=== PATIENT | female | born 1945 | race Caucasian/White ===

== ENCOUNTER 2019-11-07 12:03 | Outpatient (CLI) | payer MEDICARE, SELFPAY ==
--- NOTE | 2019-11-07 | XR_ITS ---
WS: [id number] LUMBAR SPINE: 5 VIEWS TECHNIQUE: AP, lateral, and L5-S1 spot. Lateral views in neutral, flexion and extension. HISTORY: LOW BACK PAIN WITH SCIATICA COMPARISON: 09/30/2018 Straightening of the normal lumbar lordosis is new since the prior study. Moderate disc space narrowi ng and desiccation at L5-S1 with multilevel mild spondylosis. Posterior lumbar alignment is normal. With flexion and extension there is no significant instability. SI joints are symmetric bilaterally. No soft tissue abnormalities. Scattered plaque within the visualized aorta. XR/XR lumbar spine min 4V [id number] IMPRESSION: 1. No lumbar spine instability. 2. New straightening of the normal lumbar lordosis since the prior study. May be related to spasm. 3. Moderate degenerative disc disease at L5-S1.
== END 2019-11-07 12:04 | disposition home or self-care (01) ==
LOC: RADOUTREAD 11-08 06:50
PROVIDERS: Family Provider Family Medicine; PCP Family Medicine; Visit Provider Nurse Practitioner Family
DX: M54.40 Lumbago with sciatica, unspecified side (principal); M47.897 Other spondylosis, lumbosacral region

== ENCOUNTER → 2020-04-30 09:30 | Outpatient (BNVA) | payer MEDICARE, MEDICAID, SELFPAY | PROVIDERS: Family Provider Family Medicine; PCP Family Medicine; Visit Provider Urology | DX: N30.10 Interstitial cystitis (chronic) without hematuria (principal); N39.46 Mixed incontinence | CPT/HCPCS: 81001 ==

== ENCOUNTER 2020-11-19 09:39 | Outpatient (CLI) | payer MEDICARE, SELFPAY ==
--- NOTE | 2020-11-19 09:45 | MM_ITS ---
WS: [id number] BILATERAL SCREENING DIGITAL MAMMOGRAM WITH CAD HISTORY: SCREENING COMPARISON: 08/01/2011 and 07/31/2010 Bilateral CC and MLO views submitted. Computer aided detection analyzed. Breast composition: There are scattered areas of fibroglandular density. No suspicious masses, microc alcifications or architectural distortion. Continued involution of the normal fibroglandular pattern. Coarse calcification in the central RIGHT breast. MM/[place] [id number] IMPRESSION: BI-RADS: 2-Benign FOLLOW UP: 1 Year Follow-up
== END 2020-11-19 09:40 | disposition home or self-care (01) ==
LOC: RADSHAW 09:41
PROVIDERS: PCP Family Medicine; Visit Provider Family Medicine
DX: Z12.31 Encounter for screening mammogram for malignant neoplasm of breast (principal)
CPT/HCPCS: 77067

== ENCOUNTER 2021-03-20 12:41 | Outpatient (CLI) | payer MEDICARE, SELFPAY ==
--- NOTE | 2021-03-20 | MR_ITS ---
WS: [id number] MRI LUMBAR SPINE NONCONTRAST TECHNIQUE: Sagittal T1, T2 and STIR imaging. Axial T1 and T2 imaging. CLINICAL INFORMATION: CHRONIC LT SIDED LOW BACK PAIN, SCIATICA COMPARISON: MRI September 2018 FINDINGS: Mild lumbar curve. No acute compression. No high-grade central canal stenosis. L1-L2: Normal. L2-L3: Mild disc bulging with slight impingement subarticular recess left greater than right.Mild fac et arthropathy. Small left foraminal protrusion with mild left foraminal narrowing. L3-L4: Mild disc bulging with slight impingement traversing L4 nerve roots bilaterally left greater t toribio right. Mild left foraminal narrowing. Mild facet arthropathy. L4-L5: Mild disc bulging with impingement on the subarticular recess and traversing right greater corine n left L5 nerve roots. Moderate facet arthropathy. Mild right foraminal narrowing. Moderate facet art hropathy. L5-S1: Mild disc bulging with osteophytic ridging. Moderate facet arthropathy. Foramen are patent. Visualized pelvic bony structures: Normal. Paravertebral soft tissues: Normal. Right renal cyst measuring 1.5 cm. Smaller left renal cysts. MR/MR lumbar spine wo con* [id number] IMPRESSION: 1. Disc bulging L4-5 impinges the traversing right L5 nerve root in the subart icular recess. Recommend correlation for right L5 nerve root symptoms. 2. Mild right L4-5 bony foraminal narrowing. 3. Narrowing of the subarticular recess L2-L3 and L3-L4 worse on the left at t hese levels. 4. Mild left L2-3 and L3-4 foraminal narrowing. 5. Moderate facet arthropathy worse at L4-5. 6. Overall no significant changes since September 2018
--- NOTE | 2021-03-20 | MR_ITS ---
WS: [id number] MRI CERVICAL SPINE NONCONTRAST TECHNIQUE: Sagittal T1, T2 and STIR imaging. Axial T2, gradient, and fiesta imaging. CLINICAL INFORMATION: NECK PAIN COMPARISON: CT 4 018 FINDINGS: Normal cervical alignment. Prior postoperative changes ACDF C4-C6 appears stable since 2018. Suscepti bility artifact from hardware degrades some images. C2-C3: Mild left bony foraminal narrowing. Mild facet arthropathy. Spinal canal and foramen are paten t. C3-C4: Mild disc bulging with osteophytic ridging. Mild bilateral bony foraminal narrowing. Moderate left facet arthropathy. Spinal canal is patent. C4-C5: Postoperative changes ACDF. Mild bilateral bony foraminal narrowing left greater than right. S catarino canal is patent. C5-C6: Postoperative changes ACDF. Mild bilateral bony foraminal narrowing. Spinal canal is patent. C6-C7: Mild left and no significant right foraminal narrowing. Spinal canal is patent. Mild facet art hropathy. C7-T1: Mild disc bulging. Spinal canal and foramen are patent Visualized brain stem structures: Normal. Prevertebral soft tissues: Normal. MR/MR cervical spin wo con* [id number] IMPRESSION: 1. Normal cervical alignment. ACDF C4-C6 appears stable since 2018. 2. Mild disc bulging and osteophytic ridging C3-C4 with mild central canal mayo nosis with slight contact of the cervical cord. 3. Mild bony foraminal narrowing worse at left C3-C4 and left C6-C7.
== END 2021-03-20 12:42 | disposition home or self-care (01) ==
PROVIDERS: PCP Nurse Practitioner Family; Visit Provider Nurse Practitioner Family
DX: M54.42 Lumbago with sciatica, left side (principal); M47.816 Spondylosis without myelopathy or radiculopathy, lumbar region; M51.26 Other intervertebral disc displacement, lumbar region; M25.78 Osteophyte, vertebrae; M48.02 Spinal stenosis, cervical region
CPT/HCPCS: 72141; 72148

== ENCOUNTER → 2021-04-25 11:39 | Outpatient (BNVA) | payer MEDICARE, SELFPAY | PROVIDERS: PCP Nurse Practitioner Family; Visit Provider Orthopaedic Surgery | DX: M25.561 Pain in right knee (principal); M17.11 Unilateral primary osteoarthritis, right knee; M54.5 Low back pain; M48.062 Spinal stenosis, lumbar region with neurogenic claudication; M51.26 Other intervertebral disc displacement, lumbar region; M50.21 Other cervical disc displacement, high cervical region; J43.9 Emphysema, unspecified; I70.0 Atherosclerosis of aorta | CPT/HCPCS: 73560; 73565 ==

== ENCOUNTER → 2021-04-30 10:14 | Outpatient (BNVA) | payer MEDICARE, SELFPAY | PROVIDERS: PCP Nurse Practitioner Family; Visit Provider Urology | DX: N39.0 Urinary tract infection, site not specified (principal); Z85.51 Personal history of malignant neoplasm of bladder | CPT/HCPCS: 81003 ==

== ENCOUNTER 2021-05-17 05:49 | Day surgery (SDC) | payer MEDICARE, SELFPAY ==
[2021-05-16 10:38] VITALS: BMI 23.1
[2021-05-17] VITALS (9 sets, daily range): BP systolic 129–151; BP diastolic 63–84; PULSE 62–104; RESP 16–22; TEMP 36.2–36.5; O2SAT 96–98
--- NOTE | 2021-05-17 | SCC_ITS ---
Procedure Done: Right L4/5 laminectomy with partial facetectomy No permanent C-leo images were obtained. MAYI
--- NOTE | 2021-05-17 06:33 | W.PM.OPSUD ---
Surgery/Procedure H&P Update DATE OF PROCEDURE: May 17, 2021 DATE H&P PERFORMED: 04/25/21 H&P UPDATE INFORMATION: I have reviewed H&P completed within last 30 days, I have examined patient prior to procedure and No changes to prior documentation PREOP DIAGNOSIS: lumbar stenosis PLANNED PROCEDURE: Operation Date: 05/17/21 07:00 Proposed Procedures p L4/5 MIS decompression 22934 m48.061(Not Applicable) - Domo Orta DO
[2021-05-17] MEDS: sodium chloride 0.9% 1,000 ML 30 ML IV (06:39)
--- NOTE | 2021-05-17 06:41 | ANES.PREANE2 ---
Pre-Anesthetic Assessment Pre-Anesthetic Assessment: Height/Weight: Height 1.7 m Weight 67.132 kg Temp Pulse Resp BP Pulse Ox 97.7 F 62 16 151/63 98 05/17/21 06:10 05/17/21 06:10 05/17/21 06:10 05/17/21 06:10 05/17/21 06:10 Preop Diagnosis: lumbar stenosis Proposed Procedure: Operation Date: 05/17/21 07:00 Proposed Procedures p L4/5 MIS decompression 97212 m48.061(Not Applicable) - Domo Orta DO Familial anesthetic complications: Spinal made her shiver and cold Was Beta Sandrine taken within 24 hours: Yes Was Clonidine taken within 24 hours: N/A Last intake: Intake Last Liquid Date 05/16/21 Last Liquid Time 21:00 Last Solid Date 05/16/21 Last Solid Time 21:00 Social: Social History: Tobacco and No alcohol Exam: Pre-Anes Outpt Exam: alert, oriented x 3, clear to auscultation bilaterally and regular rate & rhythm Additional Exam Findings (including area of procedure): diminished Airway: Cervical ROM: WNL MP: 2 Dentition: False Pulmonary: Pulmonary: COPD CV/HEM: CV/HEM: Arrythmia (hx SVT) and HTN Metabolic: Metabolic: Thyroid Anesthetic Plan: ASA status: 3 Anesthesia: General Risk of > 500 ml blood loss (7ml/kg in children): No Meds/Allergies Current Medications: Current Medications Generic Name Dose Route Start Last Admin Trade Name Freq PRN Reason Stop Dose Admin Sodium Chloride 1,000 mls @ 30 ml s/hr 05/17/21 06:15 05/17/21 06:39 Sodium Chloride 0.9% IV 05/18/21 06:14 30 mls/hr .Q24H RODOLFO Administration PFSH Anesthesia PFSH: Medical History Hx of bladder cancer Mixed stress and urge urinary incontinence Recurrent UTI Surgical History History of back surgery NECK SURGERY Hx of cataract surgery Hx of hemorrhoidectomy Hx of oophorectomy Hx of total hysterectomy Hx of transurethral destruction of bladder lesion Family History Mother , AT AGE 94 Congestive heart failure Aortic valve disorder Hypertension Heart block Father , IN HIS 80'S Alzheimer disease Other Diabetes Social History Alcohol intake: never Adopted: No Caregiver/support person: No Marital status: Current occupational status: retired History of recent travel: No Current gender identity: Female Data Anesthesia Cardiac Studies: No Data to Display
--- NOTE | 2021-05-17 06:43 | ECG_ITS ---
[facility] Test Date: 2021-05-17 Pat Name: Marlee Bernard Department: Room: Gender: Female Recording Clerk: : 1945 Requested By: Lupe Rainey Order Number: [id number] Yoli MD: Mary Alice Mahoney M.D. Measurements Intervals [place] Rate: 61 P: 68 [place]: 231 QRS: 49 QRSD: 79 T: 54 QT: 418 QTc: 423 Interpretive Statements SINUS RHYTHM WITH FIRST DEGREE AV BLOCK No previous ECG available for comparison Electronically Signed On 05-17-2021 14:54:48 CDT by Mary Alice Mahoney M.D. [id number]
--- NOTE | 2021-05-17 07:57 | P.OP_ITS ---
Operative Report Date of procedure: May 17, 2021 Pre-op Diagnosis: lumbar stenosis Post-op diagnosis: same Procedure Done: Right L4/5 laminectomy with partial facetectomy Surgeon: Domo Orta Anesthesia: General Estimated blood loss (mL): 5 Condition: stable Disposition: PACU Procedure: Right L4/5 laminectomy with partial facetectomy Patient is brought to the operative suite. After undergoing anesthesia they are placed in the supine position. All areas of impingement are well padded. Patient is then prepped and draped in the normal sterile fashion. A skin incision is made over the L4/5 level. This is confirmed under c-arm guidance. A series of dilators are passed and the tubular retractor is docked on the L4 lamina. A bovie is used to clear the soft tissue off the lamina and the L 4/5 facet joint. A high speed gilles is then used to perform the laminect janes and take down the medial aspect of the L 4/5 facet joint. A kerrison rongeure was then used to take down the remaining lamina and smooth the edge of the laminectomy up to the point where the ligamentum flavum attaches. Attention was then brought to the medial aspect of the facet joint. The remaining medial aspect of the superior and inferior aspect of the facet joint were taken down with the kerrison from the pedicle of L4 to L 5. The facet joint had significant hypertrophy. Attention was then brought to the Ligamentum Flavum. The ligament was taken down from the lamina of L4 to L5 and out medially to the remaining facet joint. The ligament was thick. The dura was then exposed. The dura was in good repair. The L4 nerve was then traced with a curette out the L4/5 foramen and found to be adequately decompressed. The L5 nerve was traced with a curette around the L5 pedicle. The lateral recess was opened with a kerrison helping to further decompress the L5 nerve. Wound is then irrigated copiously with saline and surgiflo is used to stop any bleeding. The tubular retractor is removed and the wound is closed with vicryl and monocryl suture. Glue is then used to protect the wound. A sterile dressing is then placed. Patient was then placed in the supine position and transferred to the PACU in stable condition.
[2021-05-17] MEDS: HYDROcodone-acetaminophen 5-325 mg Tablet 1 TAB PO (08:36)
--- NOTE | 2021-05-17 14:24 | ANE.PACU2 ---
Inpatient post-anesthesia follow up: Airway intact: Yes Vital signs: Temperature 97.4 F Pulse Rate 78 Respiratory Rate 16 Blood Pressure 129/66 Pulse Oximetry 97 Oxygen Delivery Me thod Room Air Oxygen Flow Rate 8 Fraction of Inspir ed Oxygen Hydration adequate: Yes Nausea and vomiting: No Pain level: 2 Mental status: Baseline
== END 2021-05-17 09:23 | disposition home or self-care (01) ==
PROVIDERS: PCP Nurse Practitioner Family; Visit Provider Orthopaedic Surgery
PROC: (CPT 63005; principal; 2021-05-17 07:00)
DX: M48.062 Spinal stenosis, lumbar region with neurogenic claudication (principal); J44.9 Chronic obstructive pulmonary disease, unspecified; I10 Essential (primary) hypertension; Z85.51 Personal history of malignant neoplasm of bladder; Z82.49 Family history of ischemic heart disease and other diseases of the circulatory system; Z83.3 Family history of diabetes mellitus; F17.210 Nicotine dependence, cigarettes, uncomplicated
CPT/HCPCS: 63047; 76000; 93005; J0690; J1100; J2405; J2704; J2710; J3010; J3490; J7030

== ENCOUNTER → 2021-06-10 10:58 | Outpatient (BNVA) | payer MEDICARE, SELFPAY | PROVIDERS: PCP Nurse Practitioner Family; Visit Provider Urology | DX: N39.0 Urinary tract infection, site not specified (principal) | CPT/HCPCS: 81003 ==

== ENCOUNTER 2021-08-06 10:00 | Outpatient (CLI) | payer MEDICARE, SELFPAY ==
--- NOTE | 2021-08-06 10:18 | CT_ITS ---
WS: [id number] LDCT LUNG CANCER SCREENING HISTORY: NICOTINE DEPENDENCE TECHNIQUE: Axial imaging performed from the apices to 1 cm below the costophrenic angles. Coronal and sagittal reformats are submitted with axial MIP series. All CT scans at [facility] use at least one of these dose optimization techniques: automated exposure control; mA and/or kV adjustment per patient size (includes targeted exams where dose is matched to clinical indication); or iterativ e reconstruction. DLP: 57.35 mGy.cm DIvol: 1.58 mGy COMPARISON: None available. Diagnostic quality: Satisfactory Lung Nodules: Small amount of biapical pleural thickening. Benign granuloma RIGHT upper lobe. No pulm onary mass or nodule. No endobronchial lesions. Lungs: Chronic emphysema. Heart: Normal size heart. No pericardial effusion. Other findings: Mild atherosclerosis aorta. No aneurysm. There are a few benign-appearing lymph nodes in the mediastinum and hilum. CT/CT lung screening [id number] IMPRESSION: LUNG-RADS: 1-Negative FOLLOW UP: 12 Month: Continue annual screening with LDCT OTHER FINDINGS (S MODIFIER): None.
== END 2021-08-06 10:01 | disposition home or self-care (01) ==
LOC: CT 10:03
PROVIDERS: PCP Nurse Practitioner Family; Visit Provider Nurse Practitioner Family
DX: Z12.2 Encounter for screening for malignant neoplasm of respiratory organs (principal); Z87.891 Personal history of nicotine dependence; I70.0 Atherosclerosis of aorta
CPT/HCPCS: 71271

== ENCOUNTER 2022-11-26 12:51 | Outpatient (CLI) | payer MEDICARE, SELFPAY ==
--- NOTE | 2022-11-26 13:13 | CT_ITS ---
WS: [id number] LDCT LUNG CANCER SCREENING TECHNIQUE: Noncontrast CT of the chest with coronal and sagittal reformatted images. CLINICAL INFORMATION: NICOTINE DEPENDENCE, CIGARETTES COMPARISON: August 06, 2021 DLP: 79.69 mGy.cm DIvol: Mean CTDIvol: 1.60 (mGy) All CT scans at [facility] use at least one of these dose optimization techniques: automat ed exposure control; mA and/or kV adjustment per patient size (includes targeted exams where dose is matched to clinical indication); or iterative reconstruction. FINDINGS: Normal caliber thoracic aorta. Mild aortic calcification. Coronary calcification. Normal caliber desc ending thoracic aorta. No mediastinal or hilar lymphadenopathy. A few normal sized anterior mediastin al and peribronchial lymph nodes. Calcified LEFT hilar nodes. No axillary lymphadenopathy. Adrenal glands are normal. Splenic granulomas. Normal GE junction. Moderate thoracic kyphosis. Fibros is in the lung apices. CT/CT lung screening [id number] IMPRESSION: LUNG-RADS: 1-Negative FOLLOW UP: 12 Month: Continue annual screening with LDCT
== END 2022-11-26 12:52 | disposition home or self-care (01) ==
LOC: RAD 13:00
PROVIDERS: PCP Nurse Practitioner Family; Visit Provider Family Medicine
DX: Z12.2 Encounter for screening for malignant neoplasm of respiratory organs (principal); F17.210 Nicotine dependence, cigarettes, uncomplicated
CPT/HCPCS: 71271

== ENCOUNTER → 2023-04-16 10:49 | Outpatient (BNVA) | payer MEDICARE, SELFPAY | PROVIDERS: PCP Nurse Practitioner Family; Visit Provider Orthopaedic Surgery | DX: M54.2 Cervicalgia (principal) | CPT/HCPCS: 72040; 99214 ==

== ENCOUNTER 2023-05-05 12:16 | Outpatient (CLI) | payer MEDICARE, SELFPAY ==
--- NOTE | 2023-05-05 12:45 | MR_ITS ---
WS: [id number] MRI CERVICAL SPINE NONCONTRAST TECHNIQUE: Sagittal T1, T2 and STIR imaging. Axial T2, gradient, and fiesta imaging. CLINICAL INFORMATION: s/p cervical spine fusion COMPARISON: MRI cervical March 20, 2021 FINDINGS: Straightening of the normal cervical lordosis. Prior postoperative changes ACDF C4-C6 with interbody bony fusion. Slight anterolisthesis C7 on T1. Cord signal is normal. Laminectomy defects C4-C6. Spina l canal has been decompressed since 2020 C2-C3: Moderate facet arthropathy. Small facet effusions. Spinal canal is patent. Mild LEFT bony fora ari narrowing. C3-C4: Moderate facet arthropathy. Mild bilateral bony foraminal narrowing LEFT greater than RIGHT. S catarino canal is patent. C4-C5: Postoperative changes. Spinal canal and foramen are patent. Moderate facet arthropathy. C5-C6: Postoperative changes anterior cervical fusion. Mild bilateral bony foraminal narrowing. Spina l canal is patent. C6-C7: Postoperative changes anterior cervical fusion at C6. Mild LEFT bony foraminal narrowing. Mode rate facet arthropathy. Spinal canal is patent. C7-T1: Slight anterolisthesis C7 on T1. Shallow tiny central protrusion. Foramen are patent. Visualized brain stem structures: Normal. Prevertebral soft tissues: Normal. MR/MR cervical spin wo con* [id number] IMPRESSION: 1. Straightening of the normal cervical lordosis. Prior postoperative changes ACDF C4-C6. 2. Spinal canal is been decompressed. No significant central canal stenosis. C ord signal is normal. 3. Mild to moderate bony foraminal narrowing worse at bilateral C3-C4, bilater al C5-C6, and LEFT C6-C7.
== END 2023-05-05 12:17 | disposition home or self-care (01) ==
PROVIDERS: PCP Nurse Practitioner Family; Visit Provider Orthopaedic Surgery
DX: M54.2 Cervicalgia (principal); Z98.1 Arthrodesis status; M48.02 Spinal stenosis, cervical region
CPT/HCPCS: 72141

== ENCOUNTER → 2023-05-12 14:23 | Outpatient (BNVA) | payer MEDICARE, SELFPAY | PROVIDERS: PCP Nurse Practitioner Family; Visit Provider Orthopaedic Surgery | DX: M54.2 Cervicalgia (principal) | CPT/HCPCS: 99214 ==

== ENCOUNTER 2023-11-11 10:39 | Outpatient (CLI) | payer MEDICARE, SELFPAY ==
--- NOTE | 2023-11-11 10:47 | CT_ITS ---
WS: [id number] LDCT LUNG CANCER SCREENING HISTORY: NICOTINE DEPENDENCE, CIGARETTES TECHNIQUE: Axial imaging performed from the apices to 1 cm below the costophrenic angles. Coronal and sagittal reformats are submitted with axial MIP series. All CT scans at [facility] use at least one of these dose optimization techniques: automated exposure control; mA and/or kV adjustment per patient size (includes targeted exams where dose is matched to clinical indication); or iterativ e reconstruction. DLP: 54.09 mGy.cm DIvol: Mean CTDIvol: 1.00 (mGy) COMPARISON: 11/26/2022 Diagnostic quality: Satisfactory Lungs: Hyperinflated lungs with mild interstitial thickening. Biapical pulmonary fibrosis. Stable ple ural tagging RIGHT upper lobe. There are a few very small micronodules scattered throughout the lungs . No mass or nodule. No endobronchial lesion. Heart: Normal size heart with no pericardial effusion.. Other findings: No mediastinal or hilar adenopathy. There are small normal size mediastinal and hilar lymph nodes. Mild atherosclerosis aorta. IMPRESSION: CT/CT lung screening [id number] LUNG-RADS: 1-Negative FOLLOW UP: 12 Month: Continue annual screening with LDCT OTHER FINDINGS (S MODIFIER): None.
== END 2023-11-11 10:40 | disposition home or self-care (01) ==
LOC: RAD 10:41
PROVIDERS: PCP Family Medicine; Visit Provider Family Medicine
DX: Z12.2 Encounter for screening for malignant neoplasm of respiratory organs (principal); F17.210 Nicotine dependence, cigarettes, uncomplicated
CPT/HCPCS: 71271

== ENCOUNTER → 2023-12-03 12:28 | Outpatient (BNVA) | payer MEDICARE, SELFPAY | PROVIDERS: PCP Family Medicine; Referring Provider Family Medicine; Visit Provider Internal Medicine | DX: R07.9 Chest pain, unspecified (principal); I34.1 Nonrheumatic mitral (valve) prolapse; I10 Essential (primary) hypertension; E78.5 Hyperlipidemia, unspecified | CPT/HCPCS: 93005; 99204 ==

== ENCOUNTER 2023-12-09 09:50 | Outpatient (CLI) | payer MEDICARE, SELFPAY ==
--- NOTE | 2023-12-09 10:00 | USCV_ITS ---
Marlee Bernard Age: 78 Gender: F : 1945 Exam Date: 12/09/2023 09:57 Ordering Phys: Steve Jacques M.D ([email or web address]) Technologist: Stephany Sofia Exam Location: [facility] – [place] Indication: Recheck on heart BP: / HR: 69 Rhythm: Sinus Technical Quality: Adequate MEASUREMENTS (Male / Female) Normal Values DOPPLER MV Peak Velocity 432.0 cm/s MV Area PHT 2.7 cm squared Mitral E to A Ratio 0.8 TR Peak Velocity 117.0 cm/s TR Peak Gradient 5.5 mmHg PV Peak Velocity 69.0 cm/s FINDINGS Left Ventricle Left ventricle is normal in size. LV systolic function is normal with EF of 55 to 60%. No regional wall motion abnormalities are seen. Grade 1 diastolic dysfunction. Right Ventricle Normal in size and function Right Atrium Normal in size Left Atrium Normal in size Mitral Valve Structurally normal mitral valve. Mild to moderate mitral regurgitation. Aortic Valve Aortic valve is thickened. No significant stenosis. Mild aortic regurgitation. Tricuspid Valve Mild tricuspid regurgitation. Insufficient TR jet to calculate RVSP. Pulmonic Valve Not well-visualized Pericardium Normal Aorta Normal in size IVC Appears to be normal CONCLUSIONS LV systolic function is normal with EF of 55 to 60%. Grade 1 diastolic dysfunction Mild to moderate mitral regurgitation Mild aortic regurgitation Mild tricuspid regurgitation. No comparison studies are available. Steve Jacques MD (Electronically Signed) Final Date: 19 December 2023 10:25 S
== END 2023-12-09 09:51 | disposition home or self-care (01) ==
LOC: RAD 09:50
PROVIDERS: PCP Family Medicine; Visit Provider Internal Medicine
DX: I08.3 Combined rheumatic disorders of mitral, aortic and tricuspid valves (principal); R07.9 Chest pain, unspecified
CPT/HCPCS: 93306

== ENCOUNTER → 2024-01-26 10:01 | Outpatient (BNVA) | payer MEDICARE, SELFPAY | PROVIDERS: PCP Family Medicine; Visit Provider Surgery | DX: K46.9 Unspecified abdominal hernia without obstruction or gangrene (principal) | CPT/HCPCS: 99204 ==

== ENCOUNTER 2024-02-05 08:14 | Outpatient (CLI) | payer MEDICARE, SELFPAY ==
--- NOTE | 2024-02-05 08:30 | FL_ITS ---
WS: [id number] Barium swallow and esophagram, 02/05/2024 Clinical Data: HIATAL HERNIA Comparison: None. Fluoroscopy time: 1min [id number] # of spot films: 7 Findings: The patient swallowed the thick and thin barium, and it flowed through the hypopharynx without hesita tion. No stricture, mass, polyp or erosion was seen. The C4-C6 anterior cervical disc fusion impinges only slightly onto the posterior aspect of the hypopharynx as did spurring at the C6-C7 level. The barium entered the esophagus and there was normal motility throughout. There was a small hiatal h ernia with reflux to the thoracic inlet. No polyp, mass, erosion, stricture, ulcer or fistula was see n. The barium passed normally into the stomach. Impression: Small hiatal hernia with reflux to the thoracic inlet.
== END 2024-02-05 08:15 | disposition home or self-care (01) ==
LOC: RAD 08:14
PROVIDERS: PCP Family Medicine; Visit Provider Surgery
DX: K44.9 Diaphragmatic hernia without obstruction or gangrene (principal)
CPT/HCPCS: 74220

== ENCOUNTER → 2024-02-17 13:40 | Outpatient (BNVA) | payer MEDICARE, SELFPAY | PROVIDERS: PCP Family Medicine; Visit Provider Surgery | DX: Z09 Encounter for follow-up examination after completed treatment for conditions other than malignant neoplasm (principal) | CPT/HCPCS: 99214 ==

== ENCOUNTER → 2024-06-02 13:23 | Outpatient (BNVA) | payer MEDICARE, SELFPAY | PROVIDERS: PCP Family Medicine; Visit Provider Internal Medicine | DX: I34.1 Nonrheumatic mitral (valve) prolapse (principal); I10 Essential (primary) hypertension; E78.5 Hyperlipidemia, unspecified; Z72.0 Tobacco use | CPT/HCPCS: 99214 ==

== ENCOUNTER 2024-09-26 20:19 | Emergency (ER) | payer MEDICARE, SELFPAY ==
[2024-09-26] VITALS (10 sets, daily range): BP systolic 161–191; BP diastolic 75–92; PULSE 73–83; RESP 16–20; TEMP 36.5; O2SAT 92–97
[2024-09-26 21:44] LABS: Basophils % 0.4 %; Eosinophils % 0.4 %; Lymphocytes # 0.7 10^3/uL (0.8-4.8); Lymphocytes % 8.5 %; Mean Corpuscular HGB Conc 33.2 g/dL (30-55); Mean Corpuscular Hemoglobin 31.1 pg (27-33); Mean Corpuscular Volume 93.8 fl (85-98); Mean Platelet Volume 8.6 fL (7.4-10.4); Monocytes # 0.4 10^3/uL (0.2-0.9); Monocytes % 4.5 %; Neutrophils # 6.63 10^3/uL (1.8-7.7); Neutrophils % 85.9 %; Nucleated Red Blood Cells % 0 %; Platelet Count 238 10^3/cmm (157-399); Red Blood Count 4.69 10^6/uL (3.85-5.65); Red Cell Distribution Width 13.2 % (12.1-15.1); White Blood Count 7.72 10^3/uL (3.29-11.43)
--- NOTE | 2024-09-26 21:45 | ED_ITS ---
HPI - Abdominal Pain 2 General: Chief Complaint: Abdominal Pain Stated Complaint: ABD Pain to Back Time Seen by Provider: 09/26/24 20:55 History of Present Illness: 79-year-old female who presents emergenc y room with right flank and abdominal pain. Says this has been intermittent for months. She seen her primary and had an ultrasound of her abdomen that showed no acute process. She is also been treated for a mild urinary tract infection she says. Says today it was much worse and caused her to have nausea and vomiting. Now pain is also started to radiate down her right back and into her right groin. No known fevers. Related Data Home Medications Medication Instructions Recorded Confirmed albuterol sulfate 90 mcg/actuation 2 puff inhalation Q6H PRN 04/30/20 06/02/24 aerosol inhaler (Proventil HFA) Shortness Of Breath biotin 1 mg capsule 1 mg PO DAILY 04/30/20 06/02/24 levothyroxine 75 mcg capsule 75 mcg PO DAILY 04/30/20 06/02/24 potassium chloride 10 mEq 10 meq PO DAILY 04/30/20 06/02/24 capsule,extended release metoprolol tartrate 25 mg tablet 25 mg PO DAILY 05/16/21 06/02/24 Multivitamin PO 12/03/23 06/02/24 cholecalciferol (vitamin D3) 50 50 mcg PO DAILY 12/03/23 06/02/24 mcg (2,000 unit) capsule Previous Rx's Medication Instructions Recorded cephalexin 500 mg capsule 500 mg PO BID 7 days #14 caps 09/26/24 ondansetron 4 mg disintegrating 4 mg PO Q8H PRN nausea and 09/26/24 tablet vomiting #10 tabs tamsulosin 0.4 mg capsule (Flomax) 0.4 mg PO DAILY #30 caps 09/26/24 tramadol 50 mg tablet 50 mg PO Q8H PRN pain #10 tabs 09/26/24 Allergies Allergy/AdvReac Type Severity Reaction Status Date / Time ciprofloxacin [From Cipro] Allergy Severe rash, sores Verified 09/26/24 20:39 diazepam [From Valium] Allergy Severe anxious Verified 09/26/24 20:39 hydroxyzine [From Vistaril] Allergy Severe difficulty Verified 09/26/24 20:39 breathing sulfamethoxazole Allergy Severe rash, Verified 09/26/24 20:39 [From Septra] sores meperidine [From Demerol] Allergy Intermediate difficulty Verified 09/26/24 20:39 breathing bupropion [From Wellbutrin] Allergy Unknown Increased Verified 09/26/24 20:39 blood pressure levofloxacin [From Levaquin] Allergy Unknown rash, sores Verified 09/26/24 20:39 trimethoprim [From Septra] Allergy Unknown rash, sores Verified 09/26/24 20:39 Review of Systems 2 Narrative: Constitutional symptoms: Negative except as documented in HPI. Skin symptoms: Negative except as documented in HPI. Eye symptoms: Negative except as documented in HPI. ENMT symptoms: Negative except as documented in HPI. Respiratory symptoms: Negative except as documented in HPI. Cardiovascular symptoms: Negative except as documented in HPI. Gastrointestinal symptoms: Negative except as documented in HPI. Genitourinary symptoms: Negative except as documented in HPI. Musculoskeletal symptoms: Negative except as documented in HPI. Neurologic symptoms: Negative except as documented in HPI. Psychiatric symptoms: Negative except as documented in HPI. Endocrine symptoms: Negative except as documented in HPI. PFSH ED 2 PFSH: Medical History Hx of bladder cancer Mixed stress and urge urinary incontinence Recurrent UTI Surgical History History of back surgery NECK SURGERY Hx of cataract surgery Hx of total hysterectomy Hx of oophorectomy Hx of hemorrhoidectomy Hx of transurethral destruction of bladder lesion Family History Mother , AT AGE 94 Congestive heart failure (CHF) Aortic valve disorder Hypertension Heart block Father , IN HIS 80'S Alzheimer disease Daughter Thyroid disease Other Diabetes Denies family history of Colon cancer Ovarian cancer Clotting disorder Breast cancer Anesthesia complication Bleeding disorder Uterine cancer Stroke Social History Smoking and tobacco/nicotine status: current every day tobacco/nicotine user Alcohol intake: never Substance/Drug Use: unknown Adopted: No Caregiver/support person: No Marital status: Current occupational status: retired Current gender identity: Female Physical Exam 2 Narrative: EXAM NARRATIVE: General: Alert, no acute distress. Skin: Warm, dry. Head: Normocephalic, atraumatic. Neck: Supple, trachea midline. Eye: Extraocular movements are intact. Ears, nose, mouth and throat: mucosa moist. Cardiovascular: Regular, Normal peripheral perfusion. Respiratory: Lungs are clear to auscultation, respirations are non-labored, breath sounds are equal, Symmetrical chest wall expansion. Gastrointestinal: Soft, right flank pain, Non distended Musculoskeletal: Normal ROM, no deformity. Neurological: Alert and oriented, No focal neurological deficit observed. Psychiatric: Cooperative, appropriate mood & affect. Course 2 Vital Signs: Vital signs: Vital Signs Temperature 97.7 F 09/26/24 20:33 Pulse Rate 81 09/26/24 23:15 Respiratory Rate 19 H 09/26/24 22:15 Blood Pressure 161/76 09/26/24 23:30 Pulse Oximetry 95 09/26/24 23:15 MDM - Abdominal Pain Medical Decision Making Medical decision making: Differential diagnosis including but not limited to and based on the above HPI, review of systems and physical exam: Ureterolithiasis. Urinary tract infection. Appendicitis. Cholecystis. Musculoskeletal / back pain. Pyelonephritis Orders placed to evaluate differential diagnosis based on the above differential, HPI and physical exam Lab Review: Laboratory results were reviewed and interpreted by myself the emergency room physician. No leukocytosis. No anemia. Renal function is stable at 29 and 1. She does have some blood in her urine with 6-[address] of the abdomen pelvis with contrast: Right-sided hydro with a 4 mm stone at the right UVJ. This was reviewed and interpreted by myself the emergency room physician. I also reviewed the radiology report. I reviewed the patient's medical record. Reexamination: Patient remained stable. She is currently having very little pain. No increased work of breathing. No altered mental status. Assessment and plan: Ureterolithiasis - Discharged home - Discussed findings and plan with patient. Answered any questions. - All laboratory values were reviewed and interpreted personally by myself, the ER physician - All imaging was reviewed and interpreted personally by myself, the ER physician. - Evaluation and treatment of this problem were appropriate in the emergency setting Lab Data 09/26/24 21:29 09/26/24 21:29 Labs/Radiology: Radiology Impressions Abdomen/Pelvis CT 09/26/24 21:56 IMPRESSION: Right-sided hydronephrosis with a 4 mm stone at the right UVJ. COMMENTS: Consistent with the [employer]'s Incidental Findings Committee white paper (J Am Jurgen Radiol 2018): Any incidental renal lesion less than 1 cm or classified as too small to characterize, or any incidental cystic renal lesion characterized as simple-appearing, is likely benign. No follow-up imaging is recommended for these lesions per consensus recommendations based on imaging criteria. Laboratory Results WBC 7.72 10^3/uL (3.29-11.43) 09/26/24 21: RBC 4.69 10^6/uL (3.85-5.65) 09/26/24 21: Hgb 14.60 g/dL (11.27-16.99) 09/26/24 21: Hct 44.0 % (36-47) 09/26/24 21: MCV 93.8 fl (85-98) 09/26/24 21: MCH 31.1 pg (27-33) 09/26/24 21: MCHC 33.2 g/dL (30-55) 09/26/24 21: RDW 13.2 % (12.1-15.1) 09/26/24 21: Plt Count 238 10^3/cmm (157-399) 09/26/24 21: MPV 8.6 fL (7.4-10.4) 09/26/24 21: Neut % (Auto) 85.9 % 09/26/24 21: Lymph % (Auto) 8.5 % 09/26/24 21: Jennings % (Auto) 4.5 % 09/26/24 21:29 Eos % (Auto) 0.4 % 09/26/24 21:29 Baso % (Auto) 0.4 % 09/26/24 21:29 Neut # (Auto) 6.63 10^3/uL (1.8-7.7) 09/26/24 21: Lymph # (Auto) 0.7 10^3/uL (0.8-4.8) L 09/26/24 21: Jennings # (Auto) 0.4 10^3/uL (0.2-0.9) 09/26/24 21: Eos # (Auto) 0.0 10^3/uL (0.0-0.8) 09/26/24 21:29 Baso # (Auto) 0.0 10^3/uL (0.0-0.1) 09/26/24 21: Nucleated RBC % (auto) 0 % 09/26/24 21: Nucleated RBCs # 0.0 /100WBC 09/26/24 21:29 Sodium 144 mmol/L (136-145) 09/26/24 21: Potassium 3.9 mmol/L (3.5-5.1) 09/26/24 21: Chloride 104 mmol/L (98-107) 09/26/24 21: Carbon Dioxide 27 mmol/L (22-29) 09/26/24 21: Anion Gap 16.9 (5-19) 09/26/24 21: BUN 29 mg/dL (8-23) H 09/26/24 21: Creatinine 1.0 mg/dL (0.5-0.9) H 09/26/24 21: GFR Calculation Not Reportable 09/26/24 21: Glucose 137 mg/dL (65-115) H 09/26/24 21:29 Calculated Osmolality 306 mOsm/kg (285-295) H 09/26/24 21: Lactic Acid 1.0 mmol/L (0.5-2.2) 09/26/24 21: Calcium 9.8 mg/dL (8.5-10.5) 09/26/24 21: Total Bilirubin 0.2 mg/dL (0.15-1.2) 09/26/24 21: AST 19 U/L (0-32) 09/26/24 21: ALT 11 U/L (0-33) 09/26/24 21: Alkaline Phosphatase 132 U/L (35-105) H 09/26/24 21:29 Total Protein 7.6 g/dL (6.6-8.7) 09/26/24 21: Albumin 4.6 g/dL (3.5-5.2) 09/26/24 21: Globulin 3.0 g/dL (1.3-4.6) 09/26/24 21: Lipase 27 U/L (13-60) 09/26/24 21:29 Urine Color Yellow (Yellow) 09/26/24 21:44 Urine Appearance Clear (CLEAR) 09/26/24 21:44 Urine pH 6.5 (5-7) 09/26/24 21:44 Ur Specific [place] 1.019 (1.005-1.030) 09/26/24 21:44 Urine Protein Negative (Negative) 09/26/24 21:44 Urine Glucose (UA) Negative (Normal) 09/26/24 21:44 Urine Ketones Trace (Negative) 09/26/24 21:44 Urine Blood 1+ (Negative) A 09/26/24 21:44 Urine Nitrate Negative (Negative) 09/26/24 21:44 Urine Bilirubin Negative (Negative) 09/26/24 21:44 Urine Urobilinogen 1.0 mg/dL (Negative) 09/26/24 21:44 Ur Leukocyte Esterase 1+ (Negative) A 09/26/24 21:44 Urine RBC 11-20 /hpf (0-2) H 09/26/24 21:44 Urine WBC 6-10 /hpf (0-5) 09/26/24 21:44 Ur Squamous Epith Cells 0-5 /hpf (0-5) 09/26/24 21:44 Amorphous Sediment Not Reportable 09/26/24 21:44 Urine Bacteria None seen /hpf (NONE) 09/26/24 21:44 Hyaline Casts 6.61 /lpf 09/26/24 21:44 All radiology interpretation(s) finalized by discharge Discharge Plan Discharge Patient Disposition: Home Clinical Impression: Ureterolithiasis Condition: Stable Prescriptions: New tramadol 50 mg tablet 50 mg PO Q8H PRN (Reason: pain) Qty: 10 0RF tamsulosin [Flomax] 0.4 mg capsule 0.4 mg PO DAILY Qty: 30 0RF ondansetron 4 mg tablet,disintegrating 4 mg PO Q8H PRN (Reason: nausea and vomiting) Qty: 10 0RF cephalexin 500 mg capsule 500 mg PO BID 7 Days Qty: 14 0RF No Action levothyroxine 75 mcg capsule 75 mcg PO DAILY potassium chloride 10 mEq capsule, extended release 10 meq PO DAILY biotin 1 mg capsule 1 mg PO DAILY albuterol sulfate [Proventil HFA] 90 mcg/actuation HFA aerosol inhaler 2 puff INHALATION Q6H PRN (Reason: Shortness Of Breath) cholecalciferol (vitamin D3) 50 mcg (2,000 unit) capsule 50 mcg PO DAILY Multivitamin PO metoprolol tartrate 25 mg Tablet 25 mg PO DAILY Discharge Orders: Discharge ED (Routine); Ordered 09/26/24 Ordered By: Isabel Han Referrals: Kraig Cervantes MD [Primary Care Provider] - Jamin Rich MD [Referring] - 4-7 days (Please call for a follow-up appointment with Dr. Rich. Tell his clinic that you were seen in the emergency room and referred for a kidney stone) Discharge Diet: Usual diet Discharge Activity: Increase activity as tolerated Patient Instructions: Kidney Stones (ED), Opioid Safety, Pain Management Activity Restrictions/Additional Instructions: Call for appointment with urology. If fever (temp >100.4) develops return to the emergency room immediately, as this is an emergency. Take nausea medication prior to taking pain medications. Thank you for choosing [facility] for your healthcare needs today. Please realize this is an emergency room and that we are providing you with a medical screening exam and this may not be complete and all inclusive of all the testing and or work up that you may need to determine your ailment or severity of your illness. You have been screened and evaluated and felt safe for discharge. Health conditions do change or evolve sometimes and as such it is important that you follow up with your Primary Doctor to be re checked, 3-5 days is a general good time frame for follow up. You are always welcome to return to the ED for re assessment if your symptoms are worsening or you have new concerns Coding Level of Care Code ED Char Filter Tank Tender for Oscar Morse
[2024-09-26 21:55] LABS: Bilirubin Urine Negative (Negative); Blood Urine 1+ (Negative); Glucose Urine UA Negative (Normal); Ketones Urine Trace (Negative); Leukocyte Esterase Urine 1+ (Negative); Nitrate Urine Negative (Negative); Protein Urine Negative (Negative); Specific Gravity, Urine 1.019 (1.005-1.030); Urine Appearance Clear (CLEAR); Urine Color Yellow (Yellow); pH Urine 6.5 (5-7)
--- NOTE | 2024-09-26 21:56 | CTR_ITS ---
PROCEDURE INFORMATION: Exam: CT Abdomen And Pelvis With Contrast Exam date and time: 09/26/2024 10:25 PM Age: 79 years old Clinical indication: Abdominal pain; Acute TECHNIQUE: Imaging protocol: Computed tomography of the abdomen and pelvis with contrast. Radiation optimization: All CT scans at this facility use at least one of these dose optimization techniques: automated exposure control; mA and/or kV adjustment per patient size (includes targeted exams where dose is matched to clinical indication); or iterative reconstruction. Contrast material: OMNI 350; Contrast volume: 100 ml; Contrast route: INTRAVENOUS (IV); COMPARISON: CR XR hip RT 2-3V wo/w pel* [id number] 09/13/2018 3:28 PM RADIATION DOSE METRICS: Total DLP (mGy-cm): 471.6 FINDINGS: Liver: Unremarkable. No mass. Gallbladder and biliary ducts: Unremarkable. No calcified stones. No ductal dilation. Pancreas: Unremarkable. No ductal dilation. Spleen: Unremarkable. No mass. Adrenal glands: Unremarkable. No mass. Kidneys and ureters: [id number] right hydroureteronephrosis with a 4 mm stone at the right UVJ. Punctate bilateral renal stones measuring upwards of 3 mm on the left. Bilateral renal cysts, up to 1.6 cm the right. Stomach and bowel: Unremarkable. No obstruction. No significant mucosal thickening. Appendix: No evidence of appendicitis. Intraperitoneal space: No free air. No significant fluid collection. Vasculature: No abdominal aortic aneurysm. Lymph nodes: No enlarged lymph nodes. Urinary bladder: Unremarkable as visualized. Reproductive: Unremarkable as visualized. Bones/joints: No acute fracture. No suspicious lesion. Soft tissues: No bowel containing hernia. CT/CT abdomen pelvis w con* [id number] IMPRESSION: Right-sided hydronephrosis with a 4 mm stone at the right UVJ. COMMENTS: Consistent with the [employer]'s Incidental Findings Committee white paper (J Am Jurgen Radiol 2018): Any incidental renal lesion less than 1 cm or classified as too small to characterize, or any incidental cystic renal lesion characterized as simple-appearing, is likely benign. No follow-up imaging is recommended for these lesions per consensus recommendations based on imaging criteria.
[2024-09-26 22:00] LABS: Add Urine Microscopic? YES; Bacteria Urine None Seen /hpf; Hyaline Casts Urine 6.61 /lpf; Squamous Epithelial Cell Urine 0-5 /hpf (0-5)
[2024-09-26 22:05] LABS: Alanine Aminotransferase 11 U/L (0-33); Albumin Level 4.6 g/dL (3.5-5.2); Alkaline Phosphatase 132 U/L (35-105); Anion Gap 16.9 (5-19); Aspartate Amino Transferase 19 U/L (0-32); Blood Urea Nitrogen 29 mg/dL (8-23); Calcium 9.8 mg/dL (8.5-10.5); Carbon Dioxide 27 mmol/L (22-29); Chloride 104 mmol/L (98-107); Creatinine Clr Calc Pharmacy 45.9629; Glucose 137 mg/dL (65-115); Lipase 27 U/L (13-60); Osmolality Calculated 306 mOsm/kg (285-295); Potassium 3.9 mmol/L (3.5-5.1); Sodium 144 mmol/L (136-145); Total Bilirubin 0.2 mg/dL (0.15-1.2); Total Protein 7.6 g/dL (6.6-8.7)
[2024-09-26 22:22] LABS: Add Urine Culture? Yes
[2024-09-26] MEDS: iohexol 350 mg/mL 500 mL Btl (per mL) IV (22:26)
[2024-09-26] MEDS: HYDROcodone-acetaminophen 5-325 mg Tablet 2 TAB PO (23:54)
[2024-09-26] MEDS: ondansetron 4 MG Tablet 8 MG PO (23:55)
[2024-09-26] MEDS: tamsulosin 0.4 mg Capsule PO (23:55)
== END 2024-09-26 23:59 | disposition home or self-care (01) ==
PROVIDERS: Emergency Medicine; Emergency Provider Emergency Medicine; PCP Family Medicine
DX: N20.1 Calculus of ureter (principal); Z72.0 Tobacco use; Z85.51 Personal history of malignant neoplasm of bladder
CPT/HCPCS: 36415; 74177; 80053; 81001; 83605; 83690; 85025; 87086; 99285; Q0162

== ENCOUNTER 2024-10-25 14:20 | Outpatient (CLI) | payer MEDICARE, SELFPAY ==
--- NOTE | 2024-10-25 14:27 | USR_ITS ---
PROCEDURE INFORMATION: Exam: US Retroperitoneal, Complete, Kidneys and Bladder Exam date and time: 10/25/2024 2:31 PM Age: 79 years old Clinical indication: Condition or disease; Kidney or ureter condition; Calculus (stone) in ureter; Additional info: Ureteral stone w/hydronephrosis TECHNIQUE: Imaging protocol: Real-time ultrasound of the retroperitoneum with image documentation. Complete exam focused on the bilateral kidneys and urinary bladder. COMPARISON: US gall bladder [id number] 08/10/2024 11:12 AM FINDINGS: Right kidney: Right kidney measures 9.8 x 5.4 x 5 cm with a renal cortical thickness of 1 cm and renal volume of 139 mL. Rounded anechoic focus of 1.6 x 1.9 x 1.7 cm with partial exophytic appearance is seen from the cortex of the right kidney consistent with simple cyst. Renal color flow is seen. No significant hydronephrosis of the right kidney. Left kidney: Left kidney measures 9.4 x 3.9 x 4.1 cm with a renal cortical thickness of 1 cm and renal volume of 78.5 mL. Two well rounded hypoechoic to partial anechoic focus with exophytic appearance is seen from the cortex of the left kidney, measuring 1.5 x 1.3 x 1.4 cm and 1.1 x 1.2 x 1.2 cm. Findings suggest minimally complex renal cysts. Renal color flow is seen. No significant hydronephrosis of the left kidney. Urinary bladder: Images of the visualized urinary bladder show no focal abnormality. Neither ureteral jet is seen. US/US renal BI* [id number] IMPRESSION: 1. Renal cysts, as noted above. 2. No findings of hydronephrosis or obstruction, suggesting interval improvement in hydronephrosis of the right kidney from previous CT exam 09/26/2024. 3. Neither ureteral jet is seen within the urinary bladder, which is otherwise unremarkable.
== END 2024-10-25 14:21 | disposition home or self-care (01) ==
PROVIDERS: PCP Family Medicine; Visit Provider Nurse Practitioner Family
DX: N13.2 Hydronephrosis with renal and ureteral calculous obstruction (principal); Q61.02 Congenital multiple renal cysts
CPT/HCPCS: 76770

== ENCOUNTER 2025-01-05 08:37 | Outpatient (CLI) | payer MEDICARE, SELFPAY ==
--- NOTE | 2025-01-05 08:44 | CT_ITS ---
WS: [id number] LDCT LUNG CANCER SCREENING TECHNIQUE: Noncontrast CT of the chest with coronal and sagittal reformatted images. CLINICAL INFORMATION: HX OF TOBACCO USE COMPARISON: CT 11/11/2023 DLP: 54.59 mGy.cm DIvol: Mean CTDIvol: 1.00 (mGy) All CT scans at [facility] use at least one of these dose optimization techniques: automated exposure control; mA and/or kV adjustment per patient size (includes targeted exams where dose is matched to clinical indication); or iterative reconstruction. FINDINGS: Hyperinflation. Chronic interstitial thickening similar to previous. Fibrosis in the lung apices. Scattered bilateral micronodules similar to the prior examination. 5 mm focal nodule or fibrosis superior segment LEFT lower lobe. No new suspicious pulmonary parenchymal abnormalities. Nodular pleural thickening RIGHT upper lobe similar to previous. Bibasilar atelectasis. No mediastinal or hilar lymphadenopathy. Numerous normal sized mediastinal lymph nodes. Mild aortic calcification. Aortic calcification. Thickening of the LEFT adrenal gland. RIGHT adrenal gland is normal. Splenic artery calcification. Normal GE junction. No axillary lymphadenopathy. Mild thoracic curve and thoracic kyphosis. CT/CT lung screening [id number] IMPRESSION: LUNG-RADS: 2-Benign Appearance or Behavior FOLLOW UP: 12 Month: Continue annual screening with LDCT
== END 2025-01-05 08:38 | disposition home or self-care (01) ==
LOC: RAD 08:39
PROVIDERS: PCP Family Medicine; Visit Provider Family Medicine
DX: Z12.2 Encounter for screening for malignant neoplasm of respiratory organs (principal); Z87.891 Personal history of nicotine dependence; J98.4 Other disorders of lung; J84.10 Pulmonary fibrosis, unspecified; R91.8 Other nonspecific abnormal finding of lung field; J92.9 Pleural plaque without asbestos; J98.11 Atelectasis; R59.0 Localized enlarged lymph nodes; I70.0 Atherosclerosis of aorta; E27.9 Disorder of adrenal gland, unspecified; D73.89 Other diseases of spleen; M43.8X4 Other specified deforming dorsopathies, thoracic region; M40.294 Other kyphosis, thoracic region
CPT/HCPCS: 71271

== ENCOUNTER → 2025-01-20 10:27 | Outpatient (BNVA) | payer MEDICARE, SELFPAY | PROVIDERS: PCP Family Medicine; Visit Provider Nurse Practitioner Family | DX: R00.2 Palpitations (principal); I34.1 Nonrheumatic mitral (valve) prolapse; I10 Essential (primary) hypertension; E78.5 Hyperlipidemia, unspecified | CPT/HCPCS: 93005; 99214 ==

== ENCOUNTER 2025-02-21 08:28 | Outpatient (CLI) | payer MEDICARE, SELFPAY ==
--- NOTE | 2025-02-21 08:30 | USCV_ITS ---
Marlee Bernard Age: 79 Gender: F : 1945 Exam Date: 02/21/2025 09:23 Ordering Phys: Germania Samuels NP Technologist: [place] [facility] [place]: afib BP: 130 / 80 HR: 66 Rhythm: Sinus Technical Quality: Adequate MEASUREMENTS (Male / Female) Normal Values 2D ECHO LV Diastolic Diameter PLAX 3.6 cm 4.2 - 5.9 / 3.9 - 5.3 cm IVS Diastolic Thickness 1.1 cm 0.6 - 1.0 / 0.6 - 0.9 cm IVS Systolic Thickness 1.3 cm LVPW Diastolic Thickness 1.1 cm 0.6 - 1.0 / 0.6 - 0.9 cm LVPW Systolic Thickness 1.5 cm LVOT Diameter 2.1 cm LV Ejection Fraction 2D Teich 60.4 % LV Ejection Fraction MOD 4C 59.7 % LV Ejection Fraction MOD 2C 63.1 % LV Ejection Fraction 2C AL 62.7 % LA Diameter 3.0 cm RA Systolic Volume 4C AL 32.2 ml RA Systolic Volume 4C MOD 30.8 ml Aorta at Sinotubular Diameter 3.3 cm IVC Diameter 1.6 cm M-MODE LA Ao Ratio MM 1.0 AV Cusp Separation MM 1.7 cm DOPPLER AV Peak Velocity 143.0 cm/s LVOT Peak Velocity 79.0 cm/s AV Area Cont Eq vti 2.4 cm squared AV Area Cont Eq pk 1.8 cm squared MV Peak Velocity 94.0 cm/s MV Area PHT 4.2 cm squared Mitral E to A Ratio 1.0 TV Peak Velocity 153.5 cm/s TR Peak Velocity 238.0 cm/s TR Peak Gradient 22.7 mmHg TV Peak E Velocity 72.0 cm/s PV Peak Velocity 104.0 cm/s FINDINGS Left Ventricle Left ventricle is normal size. LV systolic function is normal with EF of 60-65%. No regional wall motion abnormalities are seen. Right Ventricle Normal in size and function Right Atrium Normal in size Left Atrium Normal in size Mitral Valve Structurally normal mitral valve. Mild mitral regurgitation. Aortic Valve Aortic valve is thickened. No significant stenosis. Mild aortic regurgitation. Tricuspid Valve Mild tricuspid regurgitation. Pulmonary artery systolic pressure is normal Pulmonic Valve Trace pulmonic regurgitation. Pericardium Normal Aorta Normal in size IVC Appears to be normal CONCLUSIONS LV systolic function is normal with EF of 60-65% Mild mitral regurgitation Mild aortic regurgitation Mild tricuspid regurgitation Trace pulmonic regurgitation Compared to prior echocardiogram from 2023, no significant changes are seen. Steve Jacques MD (Electronically Signed) Final Date: 01 Mar 2025 09:13 S
--- NOTE | 2025-02-21 10:00 | USCV_ITS ---
Marlee Bernard Age: 79 Gender: F : 1945 Exam Date: 02/21/2025 08:34 Ordering Phys: Germania Samuels NP Technologist: VENTURA [place] [facility] [place]: right carotid bruit Risk Factors: Previous Vascular Surgery: Right Brachial BP: / Left Brachial BP: / Right Left Velocity (cm/s) Spectral Plaque Velocity (cm/s) Spectral Plaque Syst/Diast Broadening Syst/Diast Broadening 71.10/ 18.00 Prox CCA 51.60 / 9.50 65.90/ 16.70 Mid CCA 74.50 / 15.40 51.60/ 18.00 Distal CCA 68.30 / 24.40 44.80/ 14.60 Prox ICA 51.20 / 11.40 51.30/ 17.70 Mid ICA 73.00 / 18.20 57.50/ 18.00 Distal ICA 94.90 / 29.10 146.30 ECA 88.60 0.90 ICA/CCA 0.80 Antegrade Vertebral Antegrade 32.80/ 7.80 cm/s 55.60/ 10.40 cm/s Tri Subclavian Tri 103.2 62.50 0 FINDINGS Comparison: none available. No significant elevation of systolic or diastolic velocities. Waveforms are normal. Mild scattered carotid plaque. CONCLUSIONS Bilateral ICA stenosis less than 50%. Dr. Arabella Marroquin DO (Electronically Signed) Final Date: 21 February 2025 10:02 S
== END 2025-02-21 08:29 | disposition home or self-care (01) ==
LOC: RAD 08:30
PROVIDERS: PCP Family Medicine; Visit Provider Nurse Practitioner Family
DX: R09.89 Other specified symptoms and signs involving the circulatory and respiratory systems (principal); I34.1 Nonrheumatic mitral (valve) prolapse; I65.23 Occlusion and stenosis of bilateral carotid arteries; I34.0 Nonrheumatic mitral (valve) insufficiency; I35.8 Other nonrheumatic aortic valve disorders; I35.1 Nonrheumatic aortic (valve) insufficiency; I07.1 Rheumatic tricuspid insufficiency
CPT/HCPCS: 93306; 93880

== ENCOUNTER 2025-03-22 08:51 | Outpatient (CLI) | payer MEDICARE, SELFPAY ==
[2025-03-22 09:21] VITALS: BMI 24.2
--- NOTE | 2025-03-22 09:25 | ECG_ITS ---
[facility] Date: 2025-[facility]-22 Pat Name: Marlee Bernard Department: Room: Gender: Female Fern Cutter: : 1945 Requested By: Germania Samuels Order Number: [id number] Kent MD: FELIZ TEE Interpretive Statements Lung unchanged pre/post procedure; Intraprocedure shortess of breath; Symptoms resoled by discharge NOTE: Please note that this is the electrocardiogram portion of the Lexiscan/Sestamibi stress test. The perfusion scan will be documented separately. DATA: Baseline heart rate was 64 beats per minute. Baseline blood pressure was 156/73 millimeters of mercury. Target heart rate was 142. Maximum heart rate achieved was 95. which was 66% of the predicted target heart rate. Maximum blood pressure was 156/96 millimeters of mercury. The reason for ending the test was completion of the protocol. The patient did not experience any symptoms. ELECTROCARDIOGRAM: BASELINE: Sinus rhythm. Normal axis. Old possible anterior wall myocardial infarction versus lead misplacement otherwise no ST-T changes suggestive of ischemia noted. No arrhythmia noted. EXERCISE: After Lexiscan injection, no ST-T changes suggestive of ischemic noted. No arrhythmia noted. CONCLUSION: Please note due to baseline abnormality of the EKG specificity and sensitivity of the EKG portion of LexiScan MIBI stress test will be low 1. EKG not suggestive of ischemia 2. Lexiscan injection unremarkable. 3. Perfusion scan will be documented separately. Electronically Signed On 04-01-2025 23:24:25 CDT by FELIZ TEE [email or web address]
--- NOTE | 2025-03-22 09:26 | NMCV_ITS ---
NM emely perf SPECT r/s* [id number] Marlee Bernard Age: 79 Gender: F : 1945 Exam Date: 03/22/2025 10:12 Ordering Phys: Germania Samuels NP Technologist: JAMIR Sequeira Exam [facility] Indications: cp STRESS TEST Please see separate stress test report in [facility] for full findings IMAGE PROTOCOL Rest/Stress 1 Lexiscan Day Radiopharmaceutical Dose (mCi) Administration Site Administered by Rest: Tc-99m 10.4 IV Gregoria Whatley, CLIENT PROGRAM MANAGER Sestamibi Stress:Tc-99m 32.8 IV Gregoria Samaniegogle, CLIENT PROGRAM MANAGER Sestamibi Rest: 22-Mar-2025 60 Discovery 630 Stress: 22-Mar-2025 30 Discovery 630 0.4mg Lexiscan. Supine position only as patient was unable to lay prone. Images limited due to patient having a hiatel hernia. SPECT RESULTS Technical Quality: Poor Raw Data Analysis: Normal Image Corrections: Summed Stress Score: 2 Summed Rest Score: 0 Summed Difference Score: 2 PERFUSION FINDINGS Medium size area of patchy decreased tracer uptake noted in mid to distal and anterior and basal to distal inferior wall in the absence of wall motion abnormality it appeared to be an artifact. Clinical correlation advised FUNCTIONAL RESULTS (calculated via Gated SPECT) Stress Image LV EF (%): 78 Stress EDV (mL):68 TID: 1.03 Stress ESV (mL):15 FUNCTIONAL FINDINGS: There is normal left ventricular systolic function. IMPRESSIONS This study is negative for ischemia. There is no wall motion abnormality. Sarath Hahn MD (Electronically Signed) Final Date: 31 March 2025 20:01 S
[2025-03-22] MEDS: regadenoson 0.4 Mg/5 ml Syringe IVP (11:05)
[2025-03-22 11:36] VITALS: BP 146/84; PULSE 81
== END 2025-03-22 08:52 | disposition home or self-care (01) ==
LOC: CDL 08:54
PROVIDERS: PCP Family Medicine; Visit Provider Nurse Practitioner Family
DX: R07.9 Chest pain, unspecified (principal)
CPT/HCPCS: 36415; 78452; 93017; 96374; A9500; J2785

== ENCOUNTER 2025-08-29 18:40 | Emergency (ER) | payer MEDICARE, SELFPAY ==
--- OUTSIDE RECORDS SUMMARY | 2025-04-25 05:00 | XMS_ITS ---
Author Organization [facility] Address [address] [place] [address] Care Team Providers Care Road Mixer Operator Name Role Phone Kraig Cervantes MD Primary Care Provider Jamin Shell Unavailable [phone] CLAUDIA MCNAIR Unavailable [phone] REASON FOR VISIT Pt will call back to r/s- 6-8 wks f/u - urge incontinence/fecal urgency Procedures Procedure Date Ordered Date Performed Result Body Sit e Bladder Scan 04/25/2025 N/A Encounters Encounter Location Date Provider Diagnosis [facility] [address] [place] [address] 04/25/2025 CLAUDIA MCNAIR Mixed stress and urg [...] * Marlee BERNARD RDOB:1945 (80 yo F)Acc No.[id number]:04/25/2025 Progress Notes Patient: Jairon GARCIA Marlee Morales Provider: Tyrone Mcnair APRN :1945 A ge:79 Y S ex:Female Date:04/25/2025 Address:[address] [place], [place] [id number] Pcp:Kraig Cervantes MD Subjective: * Chief Complaints: [...] take Myrbetriq because of cost concerns. At [facility],? she was given V esicare prescription and [...] Codes: 8 1003 URINALYSIS, AUTO, W/O SCOPE, 26699 US URINE CAPACITY MEASURE * Billing Information: * Visit Code: * Procedure Codes: 79006 URINALYSIS, AUTO, W/O SCOPE. 56383 US URINE CAPACITY MEASURE. * Electronic signature of CAROL MCNAIR APRN on 08/29/2025 at 06:44 PM PROFESSIONAL FEE CODER Sign off status: Pending * Provider: Tyrone Mcnair APRN Date: 0 04/25/2025 Generated for Matthew nixon/Gerda/eTransmitting on: 1 10/29/2024 06:44 PM PROFESSIONAL FEE CODER History and Physical Notes * HPI (History [...] take Myrbetriq because of cost concerns. At [facility], she was given Vesicare prescription and Gemtesa samples to take in combination. She is here today for 6-8w f/u with UA/PVR.
[2025-08-29 18:44] VITALS: BP 197/85; PULSE 76; TEMP 36.8; O2SAT 97
--- OUTSIDE RECORDS SUMMARY | 2025-08-29 18:44 | XMS_ITS | Data Portability ---
Author Organization [facility] Address [address] [address] Care Team Providers Care Head Of It Name Role Phone MEE CERVANTES Primary Care Provider Assessment Encounter Date Assessment Date Assessment LastModified by Organization Details LastModified Time 05/03/2025 05/03/2025 Document scribed by Deanne Blandibe. I was present during interview and exam. I have reviewed and agree with above documentation. Dr. Irwin Cunningham. [email or web address] Not available 05/03/2025 12:52:17 06/13/2025 06/13/2025 Document scribed by Deanne Bland. I was present during interview and exam. I have reviewed and agree with above documentation. Dr. Irwin Cunningham. [email or web address] Not available 06/13/2025 14:43:05 07/25/2025 07/25/2025 Document scribed by Deanne Blandibe. I was present during interview and exam. I have reviewed and agree with above documentation. Dr. Irwin Cunningham. [email or web address] Not available 07/25/2025 12:38:37 08/01/2025 08/01/2025 Document scribed by Deanne Bland. I was present during interview and exam. I have reviewed and agree with above documentation. Dr. Irwin Cunningham. Return to office with no improvement or any problems. Go to ER with severe worsening or severe problems. [email or web address] Not available 08/02/2025 08:50:30 Plan of Treatment Reminders Order Date Submit Date Provider Last Modified By Organization Details Last Modified Time Details Appointments None recorded. Lab H pylori urea breath test, co2 infrared 2024 025 [email or web address] [facility], [address] [facility] [place], [address], 16:04:49 Referral None recorded. Procedures colonoscopy , with removal of tumor, polyp or lesion (PROC) [address], [address] , [place], [address], 11:46:30 upper endoscopy procedure (EGD) (PROC) 2024 025 [facility], [address] , [place], [address], 15:30:29 Surgeries None recorded. Imaging XR, foot, 3 or more view 2024 025 [email or web address] 2 [facility], [address] [place], [address], 09:34:44 Medication Orders tetracyclin e 500 mg capsule 2024 [facility], [address], [place], [address], 05:01:33 metronidazo le 500 mg tablet 2024 [facility], [address], [place], [address], 05:01:33 bismuth subsalicyla te 262 mg tablet 2024 025 [facility], [address], [place], [address], 05:01:33 Patient TargetsNo targets recorded. Patient Instructions Encounter Date Encounter Id Patient Instructions Last Modified By Organization Details Last Modified Time 05/03/2025 [id number] smoking cessatio n counseling, greater than 3 minutes up to 10 minutes* [email or web address] Not available 05/03/2025 13:22:05 Reason for Referral None Reported. Results Created Date Observation Date Name Description Value Unit Range Abnormal Flag Note LastModifiedBy Organization Detail LastModifiedTime 07/12/2007/14/2025 HELIC OBACT ER PYLOR I, UREA BREAT H TEST helicobacter pylori, urea breath test DETECT ED not detect ed abnormal Antim icrob ials, ez n pump inhib itors , and bismu th prepa ratio ns are known to suppr ess H. pylor i, and inges tion of these prior to H. pylor i diagn ostic testi ng may lead to false negat sayda resul ts. If clini efrain indic ated, the test may be repea rachana on a new speci men obtai fernando two weeks after disco ntinu ing treat ment. Howev er, a posit sayda resul t is still clini efrain valid . Not Available [facility] [address] [place], [address], 07/14/2025 10:28:06 04/12/20 25 04/10/2025 XR, foot, 3 or more view No observ ation record ed. [email or web address] [place], [address], 04/13/2025 15:29:24 05/30/20 25 05/25/2025 upper endos copy proce dure (EGD) (PROC ) No observ ation record ed. [facility] [place] [address] [place], [address], 05/31/2025 10:36:05 05/30/20 25 05/25/2025 colon oscop y proce dure (PROC ) No observ ation record ed. [facility] [place] [address] [place], [address], 05/31/2025 10:35:19 Result Notes None recorded. Problems Name Problem SNOMED Code Status Onset Date Resolution Date Notes Provider Name and Address Organization Details Recorded Time Abdomina l hysterec tiff Completed 199710/04/2019 Hysterec tiff; Abdomina l - Status is Inactive ; Date: 1997; 10/04/20 11:44AM by Madhuri Choi CMT, Annotati on/Adden dum; Promoted ; acuity set as *; Not Available [facility] 3 03:07:20 Nicotine dependen ce 49220304 Completed 201810/04/2019 Smoker - Status is Inactive ; 10/04/20 11:44AM by Madhuri Choi CMT, Annotati on/Adden dum; Promoted ; acuity set as *; Not Available [facility] 3 03:07:19 Hypercho lesterol emia 72564833 Completed 201810/04/2019 Hypercho lesterol emia - Status is Inactive ; 10/04/20 11:44AM by Madhuri Choi CMT, Annotati on/Adden dum; Promoted ; acuity set as *; Not Available [facility] 3 03:07:20 Malignan t neoplasm of urinary system suspecte d 690049029 Completed 201810/04/2019 Bladder Ca - Status is Inactive ; Resected .; 10/04/20 11:44AM by Madhuri Choi CMT, Annotati on/Adden dum; Promoted ; acuity set as *; Not Available [facility] 3 03:07:20 Asthma [id number] Completed 201810/04/2019 Asthma - Status is Inactive ; 10/04/20 11:44AM by Madhuri Choi CMT, Annotati on/Adden dum; Promoted ; acuity set as *; Not Available [facility] 3 03:07:20 Low back pain 964147077 Completed 201810/04/2019 Low Back Pain - Status is Inactive ; 10/04/20 11:44AM by Madhuri Choi CMT, Annotati on/Adden dum; Promoted ; acuity set as *; Not Available [facility] 3 03:07:20 Fibromya lgia 766862396 Completed 201810/04/2019 Fibromya lgia - Status is Inactive ; 10/04/20 19 11:44AM by Madhuri Choi CMT, Annotati on/Adden dum; Promoted ; acuity set as *; Not Available [facility] 3 03:07:21 Hemorrho idectomy Completed 201810/04/2019 Hemorrho idectomy - Status is Inactive ; 2005.; 10/04/20 11:44AM by Madhuri Choi CMT, Annotati on/Adden dum; Promoted ; acuity set as *; Not Available [facility] 3 03:07:21 Esophago gastrodu odenosco py Active 2021 EGD 08/05/06 Leonor maldonado [facility] 4 11:58:45 Mitral valve prolapse 480388870 Active 2021 Leonor maldonado [facility], [facility] 4 11:58:38 History of malignan t neoplasm 752868640 Active 2021 HISTORY OF BLADDER CANCER - 2002/garcia moises to remove Leonor maldonado [facility] 4 11:59:12 Hypothyr oidism 89482496 Active 2022 Mee Cervantes MD [address] [place] [address], [phone] , [facility] Veronica, L.L.CLiane 3 10:54:40 Carcinom a of urinary bladder, [facility] 0[facility] Active 2022 MERON maldonado [facility], [facility] 3 16:12:47 Insomnia 947495773 Active 2022 MERON maldonado [facility], [facility]iane[facility] 3 16:20:47 Chronic neck pain for greater than 3 months 14537107974 9103 Active 2022 MERON maldonado [facility] 3 16:21:05 [facility] l hyperten keerthi 36978316 Active 2022 MEORN maldonado, [facility] 3 16:20:37 Chronic obstruct sayda pulmonar y disease 28976807 Active 2022 MERON maldonado, [facility] 3 16:20:31 Gastroes ophageal reflux disease 307228642 Active 2022 MERON maldonado, [facility] 3 16:20:42 Hypokale debra 46274927 Active 2022 MERON maldonado, [facility] 3 16:20:52 Acute urinary tract infectio n 532156792 Active 2022 Mee Cervantes MD [address] [place] [address], [phone] , [facility] 3 08:33:20 Supraven tricular tachycar page 5664294 Active 2022 Mee Cervantes MD [address] [place] [address], [phone] , [facility] 3 10:55:25 Neuropat hy 873659627 Active 2022 Mee Cervantes MD [address] [place] [address], [phone] , [facility] 3 13:00:18 Hyperlip idemia 33443584 Active 2022 Mee Cervantes MD [address] [place] [address], [phone] , [facility] 3 12:01:32 Hiatal hernia 10450204 Active 2023 Irwin Cunningham DO [address] [place] [address], [phone] , [facility] 5 16:30:01 Urinary incontin ence 395248577 Active 2023 Mee Cervantes MD [address] [place] [address], [phone] , [facility] 4 12:21:33 Contact dermatit is 40331624 Active 2023 Mee Cervantes MD [address] [place] [address], [phone] , [facility] 4 12:37:13 Insect bite - wound 905753177 Active 2023 Mee Cervantes MD [address] [place] [address], [phone] , [facility] 4 23:02:15 Fatigue 00414830 Active 2023 Mee Cervantes MD [address] [place] [address], [address] , [facility] 4 12:45:10 Upper abdomina l pain 69486505 Active 2023 Mee Cervantes MD [address] [place] [address], [phone] , [facility] 4 10:56:04 Urolithi asis 90909772 Active 2023 Mee Cervantes MD [address] [place] [phone] , [facility] 4 16:31:40 Epigastr ic pain 05501541 Active 2024 Mee Cervantes MD [address] [place] [phone] , [facility] 5 15:56:39 Dysphagi a 44526302 Active 2024 Mee Cervantes MD [address] [place] [address], [address] [place] [address] , [facility] 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 Procedures Surgical History Date Name Laterality Status Provider Name and Address Organization Details Recorded Time Hysterectomy/bladder repair completed [facility] 06/28/2024 12:13:27 Hemorrhoidectomy completed [facility] 06/28/2024 12:13:50 repair of urinary bladder completed Vanessa Lino [facility], [facility] 06/28/2024 12:14:34 exploration cervical spine completed MERON BRISCOE [facility], [facility] 07/08/2023 16:28:18 Imaging Results None recorded. Procedure Notes None recorded. Medical Equipment None Reported. Allergies Allergen ID Allergen Name Allergen Category Reaction Reaction Severity Criticality Documentation Date Start Date Code Code System Note Provider Name and Address Organization Details Recorded Time 2222 sulfameth oxazole / trimethop rim medicatio n Not available Not available Not available 02/18/2023 38786 RxNorm MERON maldonado [facility], JustinaLKang 3 15:51:06 2224 Levaquin medicatio n Not available Not available Not available 02/18/2023 85526 2 RxNorm MERON maldonado [facility] 3 15:51:18 2225 Demerol medicatio n Not available Not available Not available 02/18/2023 46298 1 RxNorm MERON maldonado [facility], [facility] 3 15:51:27 2226 Cipro medicatio n Not available Not available Not available 02/18/2023 91392 3 RxNorm MERON PRESLEYPiper maldonado [facility] 3 15:51:42 2227 Wellbutri n medicatio n Not available Not available Not available 02/18/2023 81455 RxNorm MERON maldonado [facility] 3 15:51:58 2228 Lipitor medicatio n Not available Not available Not available 02/18/2023 46690 5 RxNorm MERON maldonado [facility], [facility]iane[facility] 3 15:52:12 2229 Vistaril medicatio n Not available Not available Not available 02/18/2023 42391 9 RxNorm MERON maldonado [facility] 3 15:53:02 51747 sulfameth oxazole / trimethop rim medicatio n itching Not available Not available 05/23/2023 87902 RxNorm React ion: Itchi ng; Comme nt: Recor ded 09/11 1:53P M by Griselda Nino Visit ; Hakeem reich; Volodymyr bruner ce: *; Reaso n: Drug aller gy; ; MERON maldonado [facility] 3 16:16:40 Medications Name Sig Start Date Stop Date Status Note LastModified by Organization Details LastModified Time tetracycl ine 500 mg capsule Take 1 capsule 4 times a day by oral route for 14 days. 08/15 completed Not Available Not Available Not Available biotin 10 mg tablet daily active Not Available Not Available No t Available fluticaso ne 250 mcg-salme terol 50 mcg/dose blistr powdr for inhalatio n Inhale 1 puff twice a day by inhalati on route. 06/28 completed Not Available Not Available Not Available potassium chloride ER 10 mEq capsule,e xtended release 07/08 completed Not Available Not Available Not Available trazodone 50 mg tablet TAKE 1 TABLET BY MOUTH ONCE DAILY 08/09 completed Not Available Not Available Not Available tizanidin e 4 mg tablet Take 1 tablet every 8 hours by oral route as needed. 08/09 completed Not Available Not Available Not Available fluconazo le 150 mg tablet TAKE 1 TABLET BY MOUTH now THEN REPEAT in ONE week if needed 06/28 completed Not Available Not Available Not Available metoprolo l succinate ER 50 mg tablet,ex tended release 24 hr Take 1 tablet every day by oral route. 06/28 completed Not Available Not Available Not Available clarithro mycin 500 mg tablet TAKE 1 TABLET BY MOUTH TWICE DAILY FOR 14 DAYS 06/13 completed Not Available Not Available Not Available hydrocodo ne 5 mg-acetam inophen 325 mg tablet TAKE 1 TABLET BY MOUTH EVERY 4 HOURS NEEDED FOR PAIN 06/28 completed Not Available Not Available Not Available meloxicam 15 mg tablet TAKE 1 TABLET BY MOUTH DAILY 08/09 completed Not Available Not Available Not Available potassium chloride ER 10 mEq tablet,ex tended release TAKE 1 TABLET BY MOUTH DAILY 2024 active Not Available Not Available Not Avai lable metronida zole 500 mg tablet Take 1 tablet 4 times a day by oral route for 14 days. 08/15 completed Not Available Not Available Not Available amlodipin e 5 mg tablet TAKE 1 TABLET BY MOUTH ONCE DAILY 06/28 completed Not Available Not Available Not Available tramadol 50 mg tablet active Not Available Not Available Not Available amoxicill in 500 mg tablet TAKE 2 TABLETS BY MOUTH TWICE DAILY FOR 14 DAYS 06/13 completed Not Available Not Available Not Available levothyro xine 75 mcg tablet Take 1 tablet every day by oral route for 100 days. active Not Available Not Available No t Available tamsulosi n 0.4 mg capsule 03/27 completed Not Available Not Available Not Available cephalexi n 500 mg capsule TAKE ONE CAPSULE BY MOUTH THREE TIMES DAILY 04/10 completed Not Available Not Available Not Available pantopraz ole 40 mg tablet,de layed release Take 1 tablet twice a day by oral route for 30 days. 06/13 completed Not Available Not Available Not Available lisinopri l 10 mg tablet Take 1 tablet every day by oral route. 02/19 completed Not Available Not Available Not Available lansopraz ole 30 mg capsule,d elayed release TAKE 1 CAPSULE BY MOUTH TWICE DAILY active Not Available Not Available No t Available oxybutyni n chloride ER 5 mg tablet,ex tended release 24 hr TAKE ONE TABLET BY MOUTH EVERY DAY 08/09 completed Not Available Not Available Not Available bismuth subsalicy late 262 mg tablet Take 1 tablet 4 times a day by oral route for 14 days. 08/15 completed Not Available Not Available Not Available zolpidem 5 mg tablet TAKE 1 TABLET BY MOUTH ONCE DAILY 08/09 completed Not Available Not Available Not Available gabapenti n 100 mg capsule Take 1 capsule 3 times a day by oral route. 06/28 completed Not Available Not Available Not Available metoprolo l succinate ER 25 mg tablet,ex tended release 24 hr TAKE 1 TABLET BY MOUTH ONCE DAILY 2024 active Not Available Not Available Not Avai lable estradiol 0.01% (0.1 mg/gram) vaginal cream INSERT 1 GRAM VAGINALL Y AT BEDTIME TWICE A WEEK 06/28 completed Not Available Not Available Not Available zolpidem 10 mg tablet Take 1 tablet by mouth once daily 2024 active Not Available Not Available Not Avai lable methylpre dnisolone 4 mg tablets in a dose pack TAKE DIRECTED 05/27 completed Not Available Not Available Not Available albuterol sulfate HFA 90 mcg/actua tion aerosol inhaler USE 2 INHALATI ONS BY MOUTH EVERY 4 HOURS NEEDED active Not Available Not Available No t Available oxybutyni n chloride 5 mg tablet TAKE 1 TABLET BY MOUTH ONCE DAILY active Not Available Not Available No t Available ondansetr on 4 mg disintegr ating tablet 03/27 completed Not Available Not Available Not Available fluticaso ne propionat e 50 mcg/actua tion nasal spray,elyse [place] 2 sprays every day by intranas al route. 03/27 completed Not Available Not Available Not Available nitrofura ntoin monohydra te/macroc rystals 100 mg capsule Take 1 capsule every 12 hours by oral route. 08/09 completed Not Available Not Available Not Available biotin 1 tab everyday 07/08 completed Not Available Not Available Not Available metoprolo l succinate daily 07/08 completed Recorded 11/10/19 23 3:14PM by Mee Cervantes MD, Office Visit; Mail Order Quantity : 90 Tablet; Mail Order Days: 90 Days; Refill Quantity : 0; Not Available Not Available Not Available Prevacid QD 06/28 completed Recorded 06/24/20 22 11:41AM by Mee Cervantes MD, Annotati on/Adden dum; Mail Order Quantity : 90 Capsule; Mail Order Days: 90 Days; Refill Quantity : 0; Not Available Not Available Not Available [facility] Levothyro xine Sodium daily 07/08 completed Recorded 09/22/20 22 4:03PM by Mee Cervantes MD, Office Visit; Mail Order Quantity : 90 Tablet; Mail Order Days: 90 Days; Refill Quantity : 0; Not Available Not Available Not Available Potassium Chloride ER daily 07/08 completed Recorded 06/24/20 22 11:41AM by Mee Cervantes MD, Annotati on/Adden dum; Mail Order Quantity : 90 Capsule; Mail Order Days: 90 Days; Refill Quantity : 0; Not Available Not Available Not Available Symbicort 160 mcg-4.5 mcg/actua tion HFA aerosol inhaler Inhale 2 puffs twice a day by inhalati on route. 02/19 completed Not Available Not Available Not Available ProAir RespiClic k 90 mcg/actua tion breath activated Inhale 2 puffs every 6 hours by inhalati on route as needed. 02/23 completed Not Available Not Available Not Available Repatha SureClick 140 mg/mL subcutane ous pen injector INJECT 1 ML SUBCUTAN EOUSLY EVERY TWO WEEKS 06/28 completed Not Available Not Available Not Available albuterol sulf 90 mcg/actua tion breath activated powder inhaler,s ensor Inhale 2 puffs every 4 hours by inhalati on route for 90 days. 2022 active Not Available Not Available Not Avai lable Vitals Date Recorded Body height Body mass index (BMI) Body weight Oxygen saturation Oxygen saturation in Arterial blood by Pulse oximetry Heart rate Body temperature Systolic And Diastolic Provider Name and Address Organization Details Last Updated DateTime 5 167.64 cm 23.9 kg/m2 70846.0 7 g 99 % 99 % 63 /min 98.1 [degF] 138/78 mm[Hg] Aimee Dumont [facility] 5 14:19:11 Date Recorded Body height Body mass index (BMI) Body weight Oxygen saturation Oxygen saturation in Arterial blood by Pulse oximetry Heart rate Respiratory rate Systolic And Diastolic Provider Name and Address Organization Details Last Updated DateTime 5 167.64 cm 23.7 kg/m2 58143.0 8 g 98 % 98 % 63 /min 18 /min 110/70 mm[Hg] Radha [facility] 5 12:44:02 Date Recorded Body height Body mass index (BMI) Body weight Oxygen saturation Oxygen saturation in Arterial blood by Pulse oximetry Heart rate Respiratory rate Systolic And Diastolic Provider Name and Address Organization Details Last Updated DateTime 5 167.64 cm 23.6 kg/m2 61580.8 9 g 95 % 95 % 80 /min 18 /min 130/70 mm[Hg] Ardha [facility] 5 14:33:26 Date Recorded Body height Body mass index (BMI) Body weight Oxygen saturation Oxygen saturation in Arterial blood by Pulse oximetry Heart rate Respiratory rate Systolic And Diastolic Provider Name and Address Organization Details Last Updated DateTime 5 167.64 cm 23.5 kg/m2 47597.9 9 g 98 % 98 % 77 /min 18 /min 138/84 mm[Hg] Radha Piersone [facility] 5 12:16:35 Date Recorded Body height Body mass index (BMI) Body weight Oxygen saturation Oxygen saturation in Arterial blood by Pulse oximetry Heart rate Respiratory rate Systolic And Diastolic Provider Name and Address Organization Details Last Updated DateTime 5 167.64 cm 23.6 kg/m2 85858.1 9 g 96 % 96 % 76 /min 18 /min 126/73 mm[Hg] Radha Piersone [facility] 5 15:22:30 Social History Question Answer Notes LastModified by Organizat ion Details LastModified Time Tobacco Smoking Status Current Every Day Smoker Vanessa maldonado [facility] 06/28/2024 12:13:00 Do You Have An Advance Directive? No Information not available 07/08/2023 Do You Wear A Helmet When Biking? No Information not available 07/08/2023 Are You Blind Or Do You Have Difficulty Seeing? No Information not available 07/08/2023 What Is Your Level Of Caffeine Consumption? Occasional Information not available 07/08/2023 Are You A Caregiver? No Information not available 07/08/2023 Are You Deaf Or Do You Have Serious Difficulty Hearing? No Information not available 07/08/2023 What Type Of Diet Are You Following? REGULAR Information not available 07/08/2023 What Is The Highest Grade Or Level Of School You Have Completed Or The Highest Degree You Have Received? [id number] Information not available 07/08/2023 Have There Been Any Changes To Your Family Or Social Situation? No Information no t available 07/08/2023 Which Of Your Hands Is Dominant? Left Information not available 07/08/2023 What Was The Date Of Your Most Recent Tobacco Screening? 04/10/2025 [email or web address] Information not available 04/10/2025 What Is Your Relationship Status? Information not available 07/08/2023 Do You Use Your Seat Belt Or Car Seat Routinely? Yes Information not available 07/08/2023 Do You Participate In Social Media? No Information not available 07/08/2023 Have You Recently Traveled Abroad? No Information not available 07/08/2023 Do You Have Difficulty Walking Or Climbing Stairs? No Information not available 07/08/2023 Are You Currently In School? No Information not available 07/08/2023 Do You Have Any Dietary Restrictions? No Information not available 07/08/2023 Sex: Unknown Functional Status Question Answer Note LastModified by Organizat ion Details LastModified Time Do you use any illicit or recreational drugs? No Information not available 07/08/2023 What is your level of alcohol consumption? None Information not available 07/08/2023 Are you currently employed? No Information not available 07/08/2023 Do you have transportation difficulties? No Information not available 07/08/2023 Are you able to walk independently without assistance or assistive devices? YESWOREST Information not available 07/08/2023 Do you have difficulty doing errands alone? No Information not available 07/08/2023 Are you able to care for yourself independently? Yes Information not available 07/08/2023 Do you have difficulty dressing, bathing, grooming, or toileting? No Information not available 07/08/2023 What is your exercise level? None Information not available 07/08/2023 Mental Status Question Answer Note LastModified by Organizat ion Details LastModified Time Do you feel stressed (tense, restless, nervous, or anxious, or unable to sleep at night)? [id number] Information not available 07/08/2023 Do you have difficulty concentrating, remembering or making decisions? No Information no t available 07/08/2023 Family History Nothing Reported. Medical History No medical history recorded. Gynecological HistoryNo gynecological history recorded. Obstetrics History GPAL:G 0 P 0 0 0 0 Immunizations Vaccine Type Date Status Note Provider Nam e and Address Organization Details Recorded Time Influenza, adjuvanted, trivalent, PF 5 completed Radha maldonado, [facility] 07/25/2025 14:49:14 Influenza, high-dose, quadrivalent, PF 2 [facility]08[facility] 16:32:40 COVID-19, mRNA, LNP-S, PF, 100 mcg/0.5mL dose or 50 mcg/0.25mL dose 1 completed MERON maldonado, [facility] 07/08/2023 16:32:40 COVID-19, mRNA, LNP-S, PF, 100 mcg/0.5mL dose or 50 mcg/0.25mL dose 1 [facility] 07/08/2023 16:32:40 COVID-19, mRNA, LNP-S, PF, 100 mcg/0.5mL dose or 50 mcg/0.25mL dose 1 completed [facility] 07/08/2023 16:32:40 COVID-19, mRNA, LNP-S, bivalent, PF, 50 mcg/0.5 mL or 25mcg/0.25 mL dose 2 completed MERON maldonado [facility] 07/08/2023 16:32:40 Influenza, split virus, trivalent, preservative 1 [facility] 07/08/2023 16:32:40 Influenza, adjuvanted, quadrivalent, PF 3 completed Leonor maldonado, [facility] 06/30/2024 11:59:54 RSV, bivalent, protein subunit RSVpreF, diluent reconstituted, 0.5 mL, PF 3 completed Leonor maldonado [facility] 06/30/2024 11:59:54 Influenza, high-dose, trivalent, PF 4 completed Not Available [facility] 08/01/2025 18:24:27 COVID-19, mRNA, LNP-S, PF, 50 mcg/0.5 mL 4 completed Not Available [facility] 08/01/2025 18:24:27 Influenza, split virus, trivalent, preservative 5 completed MERON maldonado [facility] 07/08/2023 16:32:40 Tdap 8 completed MERON maldonado [facility] 07/08/2023 16:32:40 Past Encounters Encounter ID Performer Location Encounter Start Date Encounter Closed Date Diagnosis/Indication Diagnosis SNOMED-CT Code Diagnosis ICD10 Code Diagnosis IMO Codes Diagnosis Note [id number] Mee Cervantes MD [facility]) [address] [place] [address] [id number] 5 02/19/2023 16:12:41 02/25/2023 15:47:13 Renewal of prescription 371199921 Z76.0 Insomnia 605284229 G47.0 0 try trazodone and attempt better neck pain control. discussed good sleep hygeine/ Chronic ne ck pain for greater than 3 months 4028047192 87285 M54.2 start mobic..con tinue tizanidine and moist heat. order for PT sent. Hypothyroidism 50048647 E03.9 Essential hypertension 10581357 I10 Chronic ob structive pulmonary disease 42163347 J44.9 Gastroesop hageal reflux disease 394636937 K21.9 Hypokalemia 25818824 E87 .6 [id number] Mee Cervantes MD [facility] ([facility]) [address] [place] [address] [id number] 5 07/08/2023 16:14:33 07/08/2023 17:58:04 Acute urinary tract infection 363370511 N39.0 UA is inconclusi ve. However given the patient's symptoms and history we will go ahead and treat with antibiotic s at this time. Discussed potential bladder irritants. Patient was encouraged to drink plenty of fluids. Chronic ne ck pain for greater than 3 months 6843109502 00323 M54.2 start mobic..con tinue tizanidine and moist heat. order for PT sent. Chronic ob structive pulmonary disease 91151591 J44.9 History of malignant neoplasm 981759901 Z85.51 Essential hypertension 63214577 I10 Hypothyroidism 24234353 E03.9 Supraventr icular tachycardia 6854339 I47.1 [id number] Mee Cervantes MD [facility] ([facility]) [address] [place] [address] [id number] 5 10/01/2023 12:24:50 10/04/2023 16:46:08 Mitral valve prolapse 719197478 I34.1 Patient is not currently establishe d with a cardiologi st. So we will send referral. Essential hypertension 17144068 I10 Recommend we will increase the metoprolol to 50 mg. The patient has been taking it half tab twice a day. Patient should continue to monitor blood pressure. Patient did express concerns about her blood pressure dropping too low, but the patient was reassured that this is a small change and that we could always stop the medication if that happens. Neuropathy 125339152 G62 .9 Patient has been on gabapentin in the past but did not tolerate it well but would like to try a lower dose. 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 Will send a prescripti on in for Repatha every 2 weeks. Screening for malignant neoplasm of respiratory tract 425605762 Z12.2 Patient has had greater than 5-pack-yea r history and is still an active smoker. Patient is due for her yearly cancer screening. Chronic ob structive pulmonary disease 57421306 J44.9 Patient has uncontroll ed symptoms at baseline. We try Advair and see if it is well covered by her insurance. May need to add Spiriva as well. [id number] Mee Cervantes MD [facility]) [address] [place] [address] [id number] 5 12/23/2023 14:50:11 12/23/2023 15:49:36 Hiatal hernia 64213096 K44.9 Surgery is suggestive of hiatal hernia. Recommend the patient undergo evaluation with EGD. Will send referral to general surgeon so they can discuss options for treatment if needed. Gastroesop hageal reflux disease 453733654 K21.9 Refill provided for her Prevacid. [id number] Mee Cervantes MD [facility] ([facility]) [address] [place] [address] [id number] 5 01/06/2024 11:45:36 01/06/2024 12:34:25 Dysuria 84826603 R30.0 Acute urin andie tract infection 385417575 N39.0 UA is inconclusi ve. However given the patient's symptoms and history we will go ahead and treat with antibiotic s at this time. Urinary incontinence 165 319049 R32 The patient is status post bladder sling and still continues to have issues. Given her incontinen ce I would recommend that she get evaluated and possibly be considered for urethral bulking. May need to consider medication s for overactive bladder as well. [id number] Mee Cervantes MD [facility]) [address] [place] [address] [id number] 5 05/13/2024 11:56:23 05/13/2024 12:52:38 Contact dermatitis 23775742 L25.9 Insect bite - wound 1174 76281 T14.8XXA Contact dermatitis versus bug bites are the likely source of the patient's condition. Most likely bug bites and quite possibly from the seed ticks that she was exposed to. Continue with topical hydrocorti sone and will provide Medrol Dosepak. Discussed antihistam ine to help with itch. [id number] Mee Cervantes MD [facility] ([facility]) [address] [place] [address] [id number] 5 05/27/2024 12:22:21 05/27/2024 12:59:44 Fatigue 25321268 R53.83 No significan t abnormalit y noted on exam. Discussed possible deconditio juan jose. Patient denies depression . We will recheck labs today for further evaluation . [id number] BRENNAN ORANTES [facility]) [address] [place] [address] [id number] 5 06/28/2024 11:52:41 06/28/2024 15:51:56 Dysuria 31628990 R30.0 Acute urin andie tract infection 010866189 N39.0 UA results reviewed and discussed with pt. We will start antibiotic s. Pt will increase oral fluids and can use cranberry. Return to office with no improvemen t or any problems. Go to ER with severe worsening or severe problems.W e will obtain urine culture [id number] Mee Cervantes MD [facility] ([facility]) [address] [place] [address] [id number] 5 08/09/2024 10:28:26 08/09/2024 11:16:40 Upper abdominal pain 74430356 R10.11 Will obtain an ultrasound for further evaluation . Insomnia 906502755 G47.0 0 Discussed the concerns of 10 mg of Ambien. The patient still would like to proceed and states that she was taking it without any issues previously . Rib pain 279233485 R07.8 1 X-ray was obtained and reviewed by me. No obvious acute abnormalit y noted. Will send images to radiology for overread. [id number] Mee Cervantes MD [facility]) [address] [place] [address] [id number] 5 08/10/2024 11:59:51 08/11/2024 13:10:41 [id number] Mee Cervantes MD [facility]) [address] [place] [address] [id number] 5 09/27/2024 15:28:08 09/27/2024 16:59:53 Urolithiasis 19948409 N20.9 Continue with current interventi ons to help pass the stone. Will send referral to urology, but more for recurrence of bladder issues and history of bladder cancer. Carcinoma of urinary bladder, superficial 892162495 C67.9 [id number] Mee Cervantes MD [facility] ([facility]) [address] [place] [address] [id number] 5 03/27/2025 15:10:39 03/27/2025 16:08:51 Epigastric pain 94623557 R10.13 66014 Patient is having some reflux symptoms and this is likely related to her hiatal hernia. Recommend she undergo EGD. May consider switching her from Prevacid to some other PPI. Hiatal hernia 68988138 K 44.9 9218 Recommend reevaluati ng this with EGD. This will also evaluate her pain and dysphagia. Dysphagia 18713429 R13.1 9 005068 History of polyp of colon 577754405 Z86.0100 [id number] The patient is almost due for repeat colonoscop y. Will send referral to Dr. Alvarado for EGD and colonoscop y consult. [id number] Irwin Cunningham DO [facility]) [address] [place] [address] [id number] 5 04/10/2025 14:07:50 04/10/2025 15:26:12 Chronic pain of right foot 9383013830 7103311 M79.671 G89.29 792477 I independen tly reviewed and interprete d x-ray images today, no acute fracture.c oncern for ligamental damage. Offered walking boot, pt would prefer to avoidWe will have pt wear tennis shoes with arch supports with all ambulation for 3 wks. nsaids.exp ect resolution , if not f/u with PCP or podiatry. [id number] Irwin Cunningham DO [facility]) [address] [place] [address] [id number] 5 05/03/2025 12:26:20 05/09/2025 16:14:48 Screening for malignant neoplasm of colon 253292422 Z12.11 I have reviewed and discussed colon cancer screening options, including colonoscop y. Discussed risks vs benefits including risk of infection and bleeding, perforatio n, possible need for surgery, reaction to medication s, and sever injury or . We discussed pt requiring sedation and possible general anesthesia . Pt agrees to proceed with Colonoscop y at [facility]. Preliminar y procedure date will be 05/25/25. Hiatal hernia 80747095 K 44.9 9218 I have reviewed and discussed EGD. Discussed risks vs benefits including risk of infection and bleeding, perforatio n, possible need for surgery, reaction to medication s, and sever injury or . We discussed pt requiring sedation and possible general anesthesia . Pt agrees to proceed with EGD at [facility]. Preliminar y procedure date will be 05/25/25. Smoker 31853690 F17.200 350971 I counseled patient on smoking risks, hazards, complicati ons, and associated illnesses. We discussed smoking cessation options. The patient will work on cutting back but is not ready to quit. We spent 4 minutes discussing this. All questions were addressed. [id number] Irwin Cunningham DO [facility]) [address] [place] [address] [id number] 5 06/13/2025 14:18:03 06/16/2025 13:38:34 Hiatal hernia 76649331 K44.9 90928402 Per EGD 05/25/25. Reviewed and discussed results, will monitor. Counseled on diagnosis, treatment options. We disussed dietary changes, need to be on PPI BID. consider referral to Dr. Mace at [facility] Infection caused by Helicobacter pylori 632491034 A04.8 82181 Treated with abx, has finished this. Counseled we need to give this at least 2 weeks then we will do breath test to reassess. Counseled she has to stop the Prevacid 1 week prior to doing the breath test. If results return positive she may need to consider repair of hiatal hernia. Pt to take Probiotic twice daily for the next two months. Screening for malignant neoplasm of colon 589107141 Z12.11 267451 Reviewed and discussed Colonoscop y results, external hemorrhoid s o/w negative, repeat 10 years. External hemorrhoids 239 70573 K64.4 737723 Counseled on diagnosis, treatment options including medication s and possible side effects. [id number] Irwin Cunningham DO [facility]) [address] [place] [address] [id number] 5 07/25/2025 12:10:59 07/31/2025 11:32:12 Infection caused by Helicobacter pylori 215389711 A04.8 071734 07/25/25: Reviewed and discussed H. Pylori positive again on 07/12/25.Th erefore treatment failure.We can not do flouroquin olone tx due to her allergies. We will start alternativ e tx: Counseled continue Prevacid, start Bismuth, Tetracycli ne, Metronidaz ole. Counseled after finishing these abx, hold Prevacid for 10 days and we will repeat H. Pylori, if positive we will need to consider repeat EGD. Administra tion of influenza vaccine 70968600 Z23 Update Fluvax. [id number] Irwin Cunningham DO [facility]) [address] [place] [address] [id number] 5 08/01/2025 15:07:46 08/02/2025 14:00:02 Infection caused by Helicobacter pylori 554061760 A04.8 31904 08/01/25: Diarrhea significan tly worse, concern for medication s/e mostly, counseled take only 10 days of the abx tx rather than 14 days, to take now through 08/03/25, then stop. Stop Probiotic until she is finished with abx tx. Also start Metamucil BID. 5: Reviewed and discussed H. Pylori positive again on 07/12/25.Th erefore treatment failure.We can not do flouroquin olone tx due to her allergies. We will start alternativ e tx: Counseled continue Prevacid, start Bismuth, Tetracycli ne, Metronidaz ole. Counseled after finishing these abx, hold Prevacid for 10 days and we will repeat H. Pylori, if positive we will need to consider repeat EGD. Health Concerns Section Related Observation LastModified by Organization Detai ls LastModified Time None Recorded Concern Status LastModified by Organization Details LastModified Time None Recorded Advance Directives Directive N: Payers Insurance Date Sequence Insurance Name Policy Number Policy [place] Covered Member ID [place] Member ID Guarantor Name 08/01/2025 1 [facility] (MEDICARE REPLACEMENT/A DVANTAGE - PPO) [id number] Marlee Bernard [id number] Marlee Bernard Notes Date Note Type Note Provider Name and Address Organization Details Recorded Time 5 text/html walk inx1 month c/o pain to top foot/ankle, no injury- happened after walking 3 steps one day. since then intemittant sharp ache with pressure on foot when walking. worse with bare feet.no redness or swelling. no fevers or chills. Irwin CunninghamDO [address] [place], [phone], [facility], Pati 04/10/2025 14:54:40 5 text/html Colonoscopy ScreeningReported by PatientColonoscopy ScreeningFor gi symptoms, patient reportsabdominal painandconstipationbut reportsno diarrhea,no recent change in bowel movements,no change in the stool,no color change in stool, andno rectal bleeding. For context, patient reportsprior examinationandhistory of colon polypsbut reportsno history of ulcerative colitis or crohn's disease. For associated symptoms, patient reportsnormal appetite,no fever,no chills,no nausea, andno vomiting. For family history, patient reportsno polypsandno colon cancer.ROS as noted in the HPI The patient presents today at the request of Dr. Cervantes for evaluation and discussion of colonoscopy for colon cancer screening and EGD. She c/o right side pain for 6 months. She admits that she has a hiatal hernia that needs checked. She also reports that she has bloating all the time and excess gas. Also having some trouble with swallowing certain consistencies. The patient denies any recent persistent diarrhea, persistent constipation, bloody or dark tarry stools, or mucusy stools. Last Colon Cancer screenin yrs ago with Dr. Alvarado and polyps removedLast EGD was over 10 or 15 yrs ago Problems with anesthesia in the past: NONE Family History of Colon cancers: NONE Blood Thinners: NONE Current daily smoker Co-morbidities: COPD ( stable right now, although having trouble getting her Flovent, insurance won't cover it, using Albuterol inhaler as needed), HTN, Hypothyroid, MVP H/o H. Pylori +. Irwin CunninghamDO [address] [place] [address], [phone], [facility], [place] 05/08/2025 22:12:17 5 text/html ROS as noted in the HPI Pt presents for scope f/u EGD and Colonoscopy performed 05/25/25: EGD with large hiatal hernia. She was + for H. Pylori, treated with abx, which she finished this am, Clarithromycin, Amoxicillin, Metronidazole.Colonoscopy with one internal hemorrhoid, uncomplicated. Repeat in 10 years. She believes she has had the hiatal hernia since she was a kid. She reports she has been treated for H. Pylori in the past also. She thinks she may have a yeast infection in her mouth, reports it is really red inside, sore, cracking at the corners of lips, after abx tx, has been using Chloraseptic and vaseline. Taking Prevacid 2 tabs daily for years.She hasn't taken the Pantoprazole that was prescribed, assumes they didn't give it to her because she was already taking Prevacid. Irwin Cunningham DO [address] [place] [address], [phone], [facility], Krista. 06/14/2025 18:51:03 5 text/html ROS as noted in the HPI Pt presents for recheck, 2 months, H. Pylori. EGD and Colonoscopy performed 05/25/25: EGD with large hiatal hernia. She was + for H. Pylori, treated with abx, which she finished this am, Clarithromycin, Amoxicillin, Metronidazole.Colonoscopy with one internal hemorrhoid, uncomplicated. Repeat in 10 years. We treated with 3abx on 05/30/25, Clarithromycin, Amoxicillin, Flagyl. H pylori positive breath test on 07/12/25. She reports she knew it was positive because her abd still hurts.She reports she can eat and within 1-2 hours she develops abd pain.She continues with acid reflux, confirms she is still taking Prevacid x2 daily. She reports allergy to Cipro and Levaquin, break out in big sores . Irwin Cunningham DO [address] [place] [address], [phone], [facility], Krista. 07/25/2025 13:47:11 5 text/html ROS as noted in the HPI Pt presents for abd pain and diarrhea We saw her for H. Pylori f/u on 07/25/25, positive results.We treated with 3abx on 05/30/25, Clarithromycin, Amoxicillin, Flagyl. Plan at last visit:Helicobacter pylori infection07/25/25: Reviewed and discussed H. Pylori positive again on 07/12/25.Therefore treatment failure.We can not do flouroquinolone tx due to her allergies. We will start alternative tx: Counseled continue Prevacid, start Bismuth, Tetracycline, Metronidazole. Counseled after finishing these abx, hold Prevacid for 10 days and we will repeat H. Pylori, if positive we will need to consider repeat EGD. She admits that she has had the pain and diarrhea since starting the abt. Now on day 8 of abx, admits cutting Flagyl in half.She also reports having pain and irritation to her rectum, having pain when sitting.She has a hemorrhoid and rash Applying OTC topicals and washing frequently without improvement. She is not taking any Fiber supplement.She is taking Probiotic in the am. Denies fever or chills as far as she can tell. She thinks she may have gotten an insect bite recently, on the right shoulder, itchy, burning, didn't see what may have bit her. Irwin Cunningham, DO [address] [place] [address], [phone], [facility], Krista. 08/02/2025 08:50:34 OBGyn Episode No OBEpisode recorded.
--- OUTSIDE RECORDS SUMMARY | 2025-08-29 18:44 | XMS_ITS | Patient Health Record ---
Author Organization [facility] Address [address] [place] [address] Care Team Providers Care Tax Preparer Name Role Phone Katerina Hess APRN Primary Care Provider Hari Dumont Unavailable [phone] Allergies Allergen (clinical drug ingredient) Drug/Non Drug Allergy documented on EMR Reaction Allergy Type Onset Date Status duloxetine Cymbalta Unknown Drug Allergy Active meperidine Demerol Unknown Drug Allergy Active Levaquin Unknown Drug Allergy Active Septra Unknown Drug Allergy Active diazepam Valium Unknown Drug Allergy Active hydroxyzine Vistaril Unknown Drug Allergy Activ e Wellbutrin Unknown Drug Allergy Active ciprofloxacin Ciprofloxacin Unknown Drug Allergy Active Reason For Referral No Information Medications Medication SIG (Take, Route, Frequency, Duration) Notes Start Date End Date Status tiZANidine HCl 4 MG Tablet 1 tablet Oral ly every 8 hours; Duration: 21 days 03/27/2021 Active Potassium 99 MG Tablet 1 tablet Orally O nce a day Active Meloxicam 7.5 MG Tablet 1 tablet Orally twice a day; Duration: 21 days 03/27/2021 Active Levothyroxine Sodium 75 MCG Tablet 1 tablet in the morning on an empty stomach Orally Once a day Active Prevacid 30 MG Capsule Delayed Release 1 capsule before a meal Orally Once a day Active Baclofen 10 MG Tablet 1 tablet as needed Orally Twice a day Active Calcium & Magnesium Carbonates Active Metoprolol Tartrate 25 MG Tablet 1 tablet with food Orally Twice a day Active Biotin 60524 MCG Tablet 1 tablet Orally Once a day Active Keflex Active Vitamin D3 50 MCG (1999 UT) Capsule 1 capsule Orally Once a day Active Ventolin HFA 108 (90 Base) MCG/ACT Aerosol Solution 1 puff as needed Inhalation every 4 hrs Active Ambien 5 MG Tablet 1 tablet at bedtime Orally Once a day Active Social History Social History Depression Screening Social Info Question Answer Notes PHQ-9 Feeling down, depressed, or hopeless Near ly every day Feeling tired or having little energy More than half the days Drugs/Alcohol: Social Info Question Answer Notes Alcohol Screen (Audit-C) Did you have a drink containing alcohol in the past year? No Points 0 Interpretation Negative Drugs Have you used drugs other than those for medical reasons in the past 12 months? No Tobacco Use: Social Info Question Answer Notes xTobacco Use/Smoking Are you a current every day sm oker Problems Problem Type SNOMED Code ICD Code Onset Dates Problem Status W/U Status Risk Notes Problem Displacement of lumbar intervertebral disc without myelopathy (39221706) Herniated nucleus pulposus, lumbar (M51.26) Active confirmed Plan Of Treatment No Information Insurance Providers Payer Name Payer Address Payer Phone Subscriber Number Group Number Insured Name Patient Relationship to Insured Coverage Start Date Coverage End Date [employer] [address] [address] [place] [phone] [id number] Marlee Bernard Self - patient is the insured Medical (General) History Medical History History ICD Code measles mumps chicken pox pneumonia bladder infections bladder cancer back trouble asthma bronchitis mitral valve prolapse cataracts colon polyps COPD depression COPD fibromyalgia hyperlipidemia Surgical History Surgery Date(Month/Year) hysterectomy, bladder tie up hemorrhoid
--- OUTSIDE RECORDS SUMMARY | 2025-08-29 18:44 | XMS_ITS | Patient Health Record ---
Author Organization [email or web address] Address [address] [place] [address] Care Team Providers Care Wood Crafter Name Role Phone Helen MARTÍNEZ, Kraig Primary Care Provider UnavailEvelia Franco Unavailable [phone] EVELIA RICH Unavailable [phone] CLAUDIA MCNAIR Unavailable [phone] ALAN PARMAR Unavailable [phone] Allergies Allergen (clinical drug ingredient) Drug/Non Drug Allergy documented on EMR Reaction Allergy Type Onset Date Status meperidine Demerol Unknown Drug Allergy Active Levaquin Unknown Drug Allergy Active Septra Unknown Drug Allergy Active diazepam Valium Unknown Drug Allergy Active hydroxyzine Vistaril Unknown Drug Allergy Activ e ciprofloxacin Ciprofloxacin Unknown Drug Allergy Active Results Component Value Reference Range Notes Urinalysis, Routine Reviewed date:11/02/2024 01:32:52 PM Interpretation: Performing Lab: Notes/Report: Urine-Color yellow Appearance clear Glucose - Bilirubin - Ketones - Specific [place] 1.015 Occult Blood - pH 6.0 Urine Protein - Urobilinogen,Semi-Qn - Nitrite, Urine - WBC Esterase - Urinalysis, Routine Reviewed date:10/11/2024 03:40:30 PM Interpretation: Performing Lab: Notes/Report: Urine-Color yellow Appearance clear Glucose - Bilirubin - Ketones - Specific [place] 1.025 Occult Blood - pH 5.5 Urine Protein - Urobilinogen,Semi-Qn - Nitrite, Urine - WBC Esterase - Urinalysis, Routine Reviewed date:01/10/2025 03:02:05 PM Interpretation: Performing Lab: Notes/Report: Urine-Color yellow Appearance clear Glucose - Bilirubin - Ketones - Specific [place] 1.025 Occult Blood - pH 6.0 Urine Protein - Urobilinogen,Semi-Qn - Nitrite, Urine - WBC Esterase - Urinalysis, Routine Reviewed date:03/07/2025 01:59:11 PM Interpretation: Performing Lab: Notes/Report: Urine-Color yellow Appearance clear Glucose - Bilirubin 1+ Ketones - Specific [place] 1.025 Occult Blood - pH 6.0 Urine Protein - Urobilinogen,Semi-Qn - Nitrite, Urine - WBC Esterase - Reason For Referral No Information Medications Medication SIG (Take, Route, Frequency, Duration) Notes Start Date End Date Status Aleve 220 MG 1 tablet with food o r milk as needed Orally every 12 hrs Active Ambien 10 MG 1 tablet at bedtime as needed Orally Once a day Active Vitamin D3 Active Vitamin E Active Metoprolol Succinate ER 25 MG 1 tablet Orally Once a day Active Levothyroxine Sodium 75 MCG 1 tablet in the morning on an empty stomach Orally Once a day Active traMADol HCl Active Xyzal Active Social History Tobacco Use: Social History Observation Description Date Details (start date - stop date) Current Smoker NA - NA Tobacco Control (Standard) Question Answer Notes Tobacco use: Current smoker How often do you smoke cigarettes? Every day How many cigarettes a day do you smoke? 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) Active confirmed Problem Ureteral stone with hydronephrosis (N13.2) Active confirmed Problem Malignant tumor of urinary bladder (443838487) Bladder carcinoma (C67.9) Active confirmed Problem Personal history of primary malignant neoplasm of urinary bladder (536155882) History of bladder cancer (Z85.51) Active confirmed Problem Kidney stone (01968389) Kidney stone (N20.0) Active confirmed Vital Signs Heart Rate 76 /min 03/07/2025 Height-cm 167.64 cm 03/07/2025 Blood pressure diastolic 70 mm Hg 03/07/2025 Weight-kg 68.04 kg 03/07/2025 Height 66 in 03/07/2025 Blood pressure systolic 124 mm Hg 03/07/2025 Weight 150 lbs 03/07/2025 BMI 24.21 kg/m2 03/07/2025 Procedures Procedure Date Ordered Date Performed Result Body Sit e Bladder Scan 03/07/2025 03/07/2025 0 mL Encounters Encounter Location Date Provider Diagnosis [facility] [address] [place] [address] 10/11/2024 Evelia Umaña Kidney stone N20.0 ; Ureteral stone with hydronephrosis N13.2 ; History of bladder cancer Z85.51 and History of urinary tract infection Z87.440 [facility] [employer], [facility] [address] [place] [address] 11/02/2024 Evelia Umaña Kidney stone N20.0 ; Ureteral stone with hydronephrosis N13.2 ; History of bladder cancer Z85.51 ; History of urinary tract infection Z87.440 and Mixed stress and urge urinary incontinence N39.46 [facility] [employer], [facility] [address] [place] [address] 01/10/2025 EVELIA RICH History of bladder cancer Z85.51 ; Kidney stone N20.0 ; Ureteral stone with hydronephrosis N13.2 ; History of urinary tract infection Z87.440 and Mixed stress and urge urinary incontinence N39.46 [facility] [employer], [facility] [address] [place] [address] 03/07/2025 EVELIA RICH Mixed stress and urg e urinary incontinence N39.46 ; History of bladder cancer Z85.51 ; Kidney stone N20.0 ; Ureteral stone with hydronephrosis N13.2 and History of urinary tract infection Z87.440 [facility] [address] [place] [address], [place] [address] 09/30/2024 ALAN PARMAR Assessments Encounter Date Diagnosis (ICD Code) Assessment Notes Treatment Notes Treatment Clinical Notes Section Notes 10/11/2024 Ureteral stone with hydronephrosis (ICD-10 - N13.2) I reviewed previous imaging along with radiology report and discussed findings with patient that there is a RIGHT 4mm UVJ stone with mild-moderate hydro, bilateral renal cysts, up to 1.6cm on the right, and Bilateral punctate nonobstructing stones upward to 3mm on the left. Patient is currently doing well with no pain or complaints since possibly passing stone. Did discuss if patient did develop pain/symptoms, may consider to start on Flomax, strainers, and reinforcement of hydration. UA test currently with no concern of infection. We discussed on assessing if resulotion of hydronephrosis with a SATURNINO in 2-3 weeks and returning care then to discuss results. Otherwise, no emergent need of intervention at this time. Plan is to have patient likely transition to active surveillance if negative SATURNINO.. For now, and through shared decision making we are in agreement with no further workup or intervention at this time, aside from what was mentioned. Vitals are stable and patient is currently asymptomatic. Patient acting appropriate. Patient will call back if further issues. All questions that were asked, were answered. Patient satisfied with plan. 10/11/2024 Kidney stone (ICD-10 - N20.0) I reviewed previous imaging along with radiology report and discussed findings with patient that there is a RIGHT 4mm UVJ stone with mild-moderate hydro, bilateral renal cysts, up to 1.6cm on the right, and Bilateral punctate nonobstructing stones upward to 3mm on the left. Patient is currently doing well with no pain or complaints since possibly passing stone. Did discuss if patient did develop pain/symptoms, may consider to start on Flomax, strainers, and reinforcement of hydration. UA test currently with no concern of infection. We discussed on assessing if resulotion of hydronephrosis with a SATURNINO in 2-3 weeks and returning care then to discuss results. Otherwise, no emergent need of intervention at this time. Plan is to have patient likely transition to active surveillance if negative SATURNINO.. For now, and through shared decision making we are in agreement with no further workup or intervention at this time, aside from what was mentioned. Vitals are stable and patient is currently asymptomatic. Patient acting appropriate. Patient will call back if further issues. All questions that were asked, were answered. Patient satisfied with plan. 01/10/2025 History of bladder cancer (ICD-10 - Z85.51) She has no visual evidence of tumor recurrence on cystoscopy. She had no bladder abnormalities but does have mixed incontinence with ISD seen and positive leak with supine Valsalva maneuver. Therefore she is a good candidate for urethral bulking and we discussed this as an option. However she does note bothersome urge incontinence and I would like to attempt Myrbetriq. She also notes some fecal incontinence making sacral neuromodulation a good option for her pending her response to medication trial. Return in 4 to 6 weeks for reassessment with urinalysis and PVR. Following cystoscopy, we have spent over 10 minutes in further consultation and treatment planning with greater than 50% of that time in direct [id number] discussion. 01/10/2025 Kidney stone (ICD-10 - N20.0) She has no visual evidence of tumor recurrence on cystoscopy. She had no bladder abnormalities but does have mixed incontinence with ISD seen and positive leak with supine Valsalva maneuver. Therefore she is a good candidate for urethral bulking and we discussed this as an option. However she does note bothersome urge incontinence and I would like to attempt Myrbetriq. She also notes some fecal incontinence making sacral neuromodulation a good option for her pending her response to medication trial. Return in 4 to 6 weeks for reassessment with urinalysis and PVR. Following cystoscopy, we have spent over 10 minutes in further consultation and treatment planning with greater than 50% of that time in direct [id number] discussion. 03/07/2025 Mixed stress and urge urinary incontinence (ICD-10 - N39.46) Patient denies taking Myrbetriq due to it being too costly. Nocturia x1-2. Notes urgency and frequency. Complaints of bowel leakage. Wears pads daily. Discussed InterStim PNE trial for OAB, and Fecal incontinences vs Trial Gemtesa.Review side effects. Patient agrees Gemtesa, 2 week of samples given today. She will return in 4-6weeks for symptom reassessment. Return sooner with any concerns She has had still bothersome daily episodes of urge incontinence and 10 out of 10 urgency with occasional fecal incontinence and fecal urgency daily. We discussed sacral neuromodulation and information pamphlet given. She did not take Myrbetriq because of cost concerns and has failed oxybutynin she believes in the past. We will attempt Vesicare prescription and Gemtesa samples also given today. She will return in 6 weeks for reassessment of symptoms and is amenable to test peripheral nerve evaluation for SNM if symptoms persist. Surveillance cystoscopy for bladder cancer per protocol on a yearly basis. 03/07/2025 History of bladder cancer (ICD-10 - Z85.51) She has had st ill bothersome daily episodes of urge incontinence and 10 out of 10 urgency with occasional fecal incontinence and fecal urgency daily. We discussed sacral neuromodulation and information pamphlet given. She did not take Myrbetriq because of cost concerns and has failed oxybutynin she believes in the past. We will attempt Vesicare prescription and Gemtesa samples also given today. She will return in 6 weeks for reassessment of symptoms and is amenable to test peripheral nerve evaluation for SNM if symptoms persist. Surveillance cystoscopy for bladder cancer per protocol on a yearly basis. 11/02/2024 Ureteral stone with hydronephrosis (ICD-10 - N13.2) I reviewed previous CT imaging again along with radiology report and discussed findings with patient that there is a RIGHT 4mm UVJ stone with mild-moderate hydro, bilateral renal cysts, up to 1.6cm on the right, and Bilateral punctate nonobstructing stones upward to 3mm on the left. Then I reviewed SATURNINO imaging along with report consistent with improved hydro and therefore likely stone passed. She never visually saw this. However, has been symptomatically doing well. Through shared decision making, we are in agreement with no further intervention at this time. With her history of bladder CA, although initially diagnosed many years ago, with continued negative surveillance, she is requesting to schedule a surveillance cystoscopy next available. This will be done, and further recommendations at that time. She is also with incontinence primarily stress incontinence, that we may need to move forward with other third line options, but will trial oxybutynin 5mg daily for now, and will reassess symptoms at time of cystoscopy. If continued issues may discuss further possible surgical options at that time. For now, and through shared decision making we are in agreement with no further workup or intervention at this time, aside from what was mentioned. Vitals are stable and patient is currently asymptomatic. Patient acting appropriate. Patient will call back if further issues. All questions that were asked, were answered. Patient satisfied with plan. 11/02/2024 Kidney stone (ICD-10 - N20.0) I reviewed previous CT imaging again along with radiology report and discussed findings with patient that there is a RIGHT 4mm UVJ stone with mild-moderate hydro, bilateral renal cysts, up to 1.6cm on the right, and Bilateral punctate nonobstructing stones upward to 3mm on the left. Then I reviewed SATURNINO imaging along with report consistent with improved hydro and therefore likely stone passed. She never visually saw this. However, has been symptomatically doing well. Through shared decision making, we are in agreement with no further intervention at this time. With her history of bladder CA, although initially diagnosed many years ago, with continued negative surveillance, she is requesting to schedule a surveillance cystoscopy next available. This will be done, and further recommendations at that time. She is also with incontinence primarily stress incontinence, that we may need to move forward with other third line options, but will trial oxybutynin 5mg daily for now, and will reassess symptoms at time of cystoscopy. If continued issues may discuss further possible surgical options at that time. For now, and through shared decision making we are in agreement with no further workup or intervention at this time, aside from what was mentioned. Vitals are stable and patient is currently asymptomatic. Patient acting appropriate. Patient will call back if further issues. All questions that were asked, were answered. Patient satisfied with plan. 10/11/2024 History of bladder cancer (ICD-10 - Z85.51) I reviewed previous imaging along with radiology report and discussed findings with patient that there is a RIGHT 4mm UVJ stone with mild-moderate hydro, bilateral renal cysts, up to 1.6cm on the right, and Bilateral punctate nonobstructing stones upward to 3mm on the left. Patient is currently doing well with no pain or complaints since possibly passing stone. Did discuss if patient did develop pain/symptoms, may consider to start on Flomax, strainers, and reinforcement of hydration. UA test currently with no concern of infection. We discussed on assessing if resulotion of hydronephrosis with a SATURNINO in 2-3 weeks and returning care then to discuss results. Otherwise, no emergent need of intervention at this time. Plan is to have patient likely transition to active surveillance if negative SATURNINO.. For now, and through shared decision making we are in agreement with no further workup or intervention at this time, aside from what was mentioned. Vitals are stable and patient is currently asymptomatic. Patient acting appropriate. Patient will call back if further issues. All questions that were asked, were answered. Patient satisfied with plan. 11/02/2024 History of bladder cancer (ICD-10 - Z85.51) I reviewed previous CT imaging again along with radiology report and discussed findings with patient that there is a RIGHT 4mm UVJ stone with mild-moderate hydro, bilateral renal cysts, up to 1.6cm on the right, and Bilateral punctate nonobstructing stones upward to 3mm on the left. Then I reviewed SATURNINO imaging along with report consistent with improved hydro and therefore likely stone passed. She never visually saw this. However, has been symptomatically doing well. Through shared decision making, we are in agreement with no further intervention at this time. With her history of bladder CA, although initially diagnosed many years ago, with continued negative surveillance, she is requesting to schedule a surveillance cystoscopy next available. This will be done, and further recommendations at that time. She is also with incontinence primarily stress incontinence, that we may need to move forward with other third line options, but will trial oxybutynin 5mg daily for now, and will reassess symptoms at time of cystoscopy. If continued issues may discuss further possible surgical options at that time. For now, and through shared decision making we are in agreement with no further workup or intervention at this time, aside from what was mentioned. Vitals are stable and patient is currently asymptomatic. Patient acting appropriate. Patient will call back if further issues. All questions that were asked, were answered. Patient satisfied with plan. 03/07/2025 Kidney stone (ICD-10 - N20.0) She has had sti ll bothersome daily episodes of urge incontinence and 10 out of 10 urgency with occasional fecal incontinence and fecal urgency daily. We discussed sacral neuromodulation and information pamphlet given. She did not take Myrbetriq because of cost concerns and has failed oxybutynin she believes in the past. We will attempt Vesicare prescription and Gemtesa samples also given today. She will return in 6 weeks for reassessment of symptoms and is amenable to test peripheral nerve evaluation for SNM if symptoms persist. Surveillance cystoscopy for bladder cancer per protocol on a yearly basis. 01/10/2025 Ureteral stone with hydronephrosis (ICD-10 - N13.2) She has no visual evidence of tumor recurrence on cystoscopy. She had no bladder abnormalities but does have mixed incontinence with ISD seen and positive leak with supine Valsalva maneuver. Therefore she is a good candidate for urethral bulking and we discussed this as an option. However she does note bothersome urge incontinence and I would like to attempt Myrbetriq. She also notes some fecal incontinence making sacral neuromodulation a good option for her pending her response to medication trial. Return in 4 to 6 weeks for reassessment with urinalysis and PVR. Following cystoscopy, we have spent over 10 minutes in further consultation and treatment planning with greater than 50% of that time in direct [id number]-[id number] discussion. 01/10/2025 History of urinary tract infection (ICD-10 - Z87.440) She has no visual evidence of tumor recurrence on cystoscopy. She had no bladder abnormalities but does have mixed incontinence with ISD seen and positive leak with supine Valsalva maneuver. Therefore she is a good candidate for urethral bulking and we discussed this as an option. However she does note bothersome urge incontinence and I would like to attempt Myrbetriq. She also notes some fecal incontinence making sacral neuromodulation a good option for her pending her response to medication trial. Return in 4 to 6 weeks for reassessment with urinalysis and PVR. Following cystoscopy, we have spent over 10 minutes in further consultation and treatment planning with greater than 50% of that time in direct [id number] discussion. 11/02/2024 History of urinary tract infection (ICD-10 - Z87.440) I reviewed previous CT imaging again along with radiology report and discussed findings with patient that there is a RIGHT 4mm UVJ stone with mild-moderate hydro, bilateral renal cysts, up to 1.6cm on the right, and Bilateral punctate nonobstructing stones upward to 3mm on the left. Then I reviewed SATURNINO imaging along with report consistent with improved hydro and therefore likely stone passed. She never visually saw this. However, has been symptomatically doing well. Through shared decision making, we are in agreement with no further intervention at this time. With her history of bladder CA, although initially diagnosed many years ago, with continued negative surveillance, she is requesting to schedule a surveillance cystoscopy next available. This will be done, and further recommendations at that time. She is also with incontinence primarily stress incontinence, that we may need to move forward with other third line options, but will trial oxybutynin 5mg daily for now, and will reassess symptoms at time of cystoscopy. If continued issues may discuss further possible surgical options at that time. For now, and through shared decision making we are in agreement with no further workup or intervention at this time, aside from what was mentioned. Vitals are stable and patient is currently asymptomatic. Patient acting appropriate. Patient will call back if further issues. All questions that were asked, were answered. Patient satisfied with plan. 03/07/2025 Ureteral stone with hydronephrosis (ICD-10 - N13.2) She has had sti ll bothersome daily episodes of urge incontinence and 10 out of 10 urgency with occasional fecal incontinence and fecal urgency daily. We discussed sacral neuromodulation and information pamphlet given. She did not take Myrbetriq because of cost concerns and has failed oxybutynin she believes in the past. We will attempt Vesicare prescription and Gemtesa samples also given today. She will return in 6 weeks for reassessment of symptoms and is amenable to test peripheral nerve evaluation for SNM if symptoms persist. Surveillance cystoscopy for bladder cancer per protocol on a yearly basis. 10/11/2024 History of urinary tract infection (ICD-10 - Z87.440) I reviewed previous imaging along with radiology report and discussed findings with patient that there is a RIGHT 4mm UVJ stone with mild-moderate hydro, bilateral renal cysts, up to 1.6cm on the right, and Bilateral punctate nonobstructing stones upward to 3mm on the left. Patient is currently doing well with no pain or complaints since possibly passing stone. Did discuss if patient did develop pain/symptoms, may consider to start on Flomax, strainers, and reinforcement of hydration. UA test currently with no concern of infection. We discussed on assessing if resulotion of hydronephrosis with a SATURNINO in 2-3 weeks and returning care then to discuss results. Otherwise, no emergent need of intervention at this time. Plan is to have patient likely transition to active surveillance if negative SATURNINO.. For now, and through shared decision making we are in agreement with no further workup or intervention at this time, aside from what was mentioned. Vitals are stable and patient is currently asymptomatic. Patient acting appropriate. Patient will call back if further issues. All questions that were asked, were answered. Patient satisfied with plan. 01/10/2025 Mixed stress and urge urinary incontinence (ICD-10 - N39.46) She has no visual evidence of tumor recurrence on cystoscopy. She had no bladder abnormalities but does have mixed incontinence with ISD seen and positive leak with supine Valsalva maneuver. Therefore she is a good candidate for urethral bulking and we discussed this as an option. However she does note bothersome urge incontinence and I would like to attempt Myrbetriq. She also notes some fecal incontinence making sacral neuromodulation a good option for her pending her response to medication trial. Return in 4 to 6 weeks for reassessment with urinalysis and PVR. Following cystoscopy, we have spent over 10 minutes in further consultation and treatment planning with greater than 50% of that time in direct [id number] discussion. 03/07/2025 History of urinary tract infection (ICD-10 - Z87.440) She has had stil l bothersome daily episodes of urge incontinence and 10 out of 10 urgency with occasional fecal incontinence and fecal urgency daily. We discussed sacral neuromodulation and information pamphlet given. She did not take Myrbetriq because of cost concerns and has failed oxybutynin she believes in the past. We will attempt Vesicare prescription and Gemtesa samples also given today. She will return in 6 weeks for reassessment of symptoms and is amenable to test peripheral nerve evaluation for SNM if symptoms persist. Surveillance cystoscopy for bladder cancer per protocol on a yearly basis. 11/02/2024 Mixed stress and urge urinary incontinence (ICD-10 - N39.46) I reviewed previous CT imaging again along with radiology report and discussed findings with patient that there is a RIGHT 4mm UVJ stone with mild-moderate hydro, bilateral renal cysts, up to 1.6cm on the right, and Bilateral punctate nonobstructing stones upward to 3mm on the left. Then I reviewed [facility] imaging along with report consistent with improved hydro and therefore likely stone passed. She never visually saw this. However, has been symptomatically doing well. Through shared decision making, we are in agreement with no further intervention at this time. With her history of bladder CA, although initially diagnosed many years ago, with continued negative surveillance, she is requesting to schedule a surveillance cystoscopy next available. This will be done, and further recommendations at that time. She is also with incontinence primarily stress incontinence, that we may need to move forward with other third line options, but will trial oxybutynin 5mg daily for now, and will reassess symptoms at time of cystoscopy. If continued issues may discuss further possible surgical options at that time. For now, and through shared decision making we are in agreement with no further workup or intervention at this time, aside from what was mentioned. Vitals are stable and patient is currently asymptomatic. Patient acting appropriate. Patient will call back if further issues. All questions that were asked, were answered. Patient satisfied with plan. 03/07/2025 Other IAleisha Scribe, am scribing for, and in the presence of, Dr. Rich. I, Dr. Evelia Rich, personally performed the services prescribed in this documentation, as scribed by Aleisha Gonzalez, in my presence, and it is both accurate and complete. She has had still bothersome daily episodes of urge incontinence and 10 out of 10 urgency with occasional fecal incontinence and fecal urgency daily. We discussed sacral neuromodulation and information pamphlet given. She did not take Myrbetriq because of cost concerns and has failed oxybutynin she believes in the past. We will attempt Vesicare prescription and Gemtesa samples also given today. She will return in 6 weeks for reassessment of symptoms and is amenable to test peripheral nerve evaluation for SNM if symptoms persist. Surveillance cystoscopy for bladder cancer per protocol on a yearly basis. Plan Of Treatment Pending Test Test Name Order Date US Renal w/bladder--[id number] 10/11/2024 Insurance Providers Payer Name Payer Address Payer Phone Subscriber Number Group Number Insured Name Patient Relationship to Insured Coverage Start Date Coverage End Date [facility] Medicare Advantage PPO [address] [address] [place], [place] [id number] BreezyMarlee islas Self - patient is the insured Medical (General) History Medical History History ICD Code Bladder cancer Degenerative disc disease Hyperlipidemia Hyperthyroidism COPD Hematuria urinary incontinence kidney stones nocturia 2-3x/night Urinary frequency Recurrent UTI fibromyalgia Cardiac arrythmia Surgical History Surgery Date(Month/Year) cervical neck surgery hysterectomy bladder cancer removal Hospitalization History Reason Date(Month/Year) child pneumonia neck surgery
--- NOTE | 2025-08-29 19:57 | W.ED.FEMALGU ---
HPI - Female Genitourinary General: Chief complaint: Urogenital-Female Stated complaint: Abd Pain, possible Kidney stone Time Seen by Provider: 08/29/25 19:55 History of Present Illness: 80yo F w/pmhx of thyroid disease, palpitations/fast heart rate on metoprolol, recurrent UTIs w/cc of sudden onset left flank pain that started around 18:00 this evening. This was not preceded by low abd/suprapubic pain, dysuria or hematuria. Patient has not had a fever, denies chest pain, shortness of breath, cough, hemoptysis or syncope. She states that she has not vomited but feels nauseated when the pain strikes. She had a normal bowel movement yesterday without blood. She has a history of a kidney stone and states this feels similar. Her abdominal surgery includes a total hysterectomy. Related Data Home Medications ?Medication ?Instructions ?Recorded ?Confirmed albuterol sulfate 90 mcg/actuation 2 puff inhalation Q6H PRN 04/30/20 01/20/25 aerosol inhaler (Proventil HFA) Shortness Of Breath biotin 1 mg capsule 1 mg PO DAILY 04/30/20 01/20/25 levothyroxine 75 mcg capsule 75 mcg PO DAILY 04/30/20 01/20/25 potassium chloride 10 mEq 10 meq PO DAILY 04/30/20 01/20/25 capsule,extended release Multivitamin PO 12/03/23 01/20/25 cholecalciferol (vitamin D3) 50 50 mcg PO DAILY 12/03/23 01/20/25 mcg (2,000 unit) capsule metoprolol succinate 25 mg 25 mg PO DAILY 01/20/25 01/20/25 tablet,extended release 24 hr Previous Rx's ?Medication ?Instructions ?Recorded ondansetron 4 mg disintegrating 4 mg PO Q8H PRN nausea and 09/26/24 tablet vomiting #10 tabs tamsulosin 0.4 mg capsule (Flomax) 0.4 mg PO DAILY #30 caps 09/26/24 tramadol 50 mg tablet 50 mg PO Q8H PRN pain #10 tabs 09/26/24 nitroglycerin 0.4 mg sublingual 0.4 mg sublingual Q5M PRN chest 03/06/25 tablet pain #25 tabs hydrocodone 5 mg-acetaminophen 325 1 tab PO Q6H PRN pain (scale score 08/29/25 mg tablet 7-10) #12 tabs ketorolac 10 mg tablet 10 mg PO Q8H PRN pain 5 days #15 08/29/25 tabs ondansetron HCl 4 mg tablet 4 mg PO Q6H PRN nausea and 08/29/25 vomiting #20 tabs Allergies Allergy/AdvReac Type Severity Reaction Status Date / Time ciprofloxacin (From Cipro) Allergy Severe rash, sores Verified 08/29/25 18:49 diazepam (From Valium) Allergy Severe anxious Verified 08/29/25 18:49 hydroxyzine (From Vistaril) Allergy Severe difficulty Verified 08/29/25 18:49 breathing sulfamethoxazole (From Allergy Severe rash, Verified 08/29/25 18:49 Septra) sores meperidine (From Demerol) Allergy Intermediate difficulty Verified 08/29/25 18:49 breathing bupropion (From Wellbutrin) Allergy Unknown Increased Verified 08/29/25 18:49 blood pressure levofloxacin (From Levaquin) Allergy Unknown rash, sores Verified 08/29/25 18:49 trimethoprim (From Septra) Allergy Unknown rash, sores Verified 08/29/25 18:49 PFSH ED PFSH: Medical History (Updated 08/29/25 @ 23:20 by Sarah Alva MD) Hx of bladder cancer Mixed stress and urge urinary incontinence Recurrent UTI Surgical History History of back surgery NECK SURGERY Hx of cataract surgery Hx of total hysterectomy Hx of oophorectomy Hx of hemorrhoidectomy Hx of transurethral destruction of bladder lesion Family History Mother , AT AGE 94 Congestive heart failure (CHF) Aortic valve disorder Hypertension Heart block Father , IN HIS 80'S Alzheimer disease Daughter Thyroid disease Other Diabetes Denies family history of Colon cancer Ovarian cancer Clotting disorder Breast cancer Anesthesia complication Bleeding disorder Uterine cancer Stroke Social History Smoking and tobacco/nicotine status: current every day tobacco/nicotine user Alcohol intake: never Substance/Drug Use: unknown Adopted: No Caregiver/support person: No Marital status: Current occupational status: retired Current gender identity: Female Physical Exam Narrative: EXAM NARRATIVE: Vital signs were reviewed. Patient appears uncomfortable. Patient is alert and oriented. Patient is breathing comfortably, no increased WOB or accessory muscle use. SpO2 is above 95% on RA. Patient has clear lungs b/l, no rhonchi, wheezing or crackles. No hypotension or tachycardia. Abdomen is soft, nondistended and nontender. No definitive CVA tenderness w/percussion. Patient is moving all extremities, no deformity or gross injury. No lower extremity edema or asymmetry. Course Vital Signs: Vital signs: Vital Signs Temperature 98.2 F 08/29/25 18:44 Pulse Rate 82 08/29/25 23:06 Respiratory Rate 16 08/29/25 23:06 Blood Pressure 181/99 08/29/25 23:06 Pulse Oximetry 94 08/29/25 23:06 Oxygen Delivery Me thod Room Air 08/29/25 20:36 MDM - Female Medical Decision Making 80yo F w/cc of sudden onset L flank pain at 18:00 this evening, similar to sensation of previous kidney stone. Differential diagnosis includes, but is not limited to, pancreatitis, cholecystitis, gastroenteritis, appendicitis, urinary tract infection, pyelonephritis, nephrolithiasis, SBO, diverticulitis, other. On initial exam, patient is hemodynamically stable and nontoxic appearing. Patient was evaluated with CBC, CMP, lipase, UA and CT abd/pelvis stone protocol. She was treated w/IV dilaudid, toradol and zofran. On reassessment, patient is pain-free. She is afebrile, has a normal white blood cell count and UA is not consistent with infection but does show hematuria. CT scan shows: IMPRESSION: There is a 4 mm stone in the proximal left ureter with upstream hydroureter and mild hydronephrosis. Patient's pain is under control, she is well-appearing and is comfortable, appropriate for discharge and outpatient follow-up. She has a urologist in [place] with whom she can make an appointment. Patient was counseled on supportive care at home, given return precautions and discharged in stable condition with recommendation for outpatient follow-up with primary care nurse or doctor. Lab Data 08/29/25 20:30 08/29/25 20:30 Radiology Impressions Abdomen/Pelvis CT 08/29/25 20:07 IMPRESSION: There is a 4 mm stone in the proximal left ureter with upstream hydroureter and mild hydronephrosis. COMMENTS: Consistent with the [employer]'s Incidental Findings Committee white paper (J Am Jurgen Radiol 2018): Any incidental renal lesion less than 1 cm or classified as too small to characterize, or any incidental cystic renal lesion characterized as simple-appearing, is likely benign. No follow-up imaging is recommended for these lesions per consensus recommendations based on imaging criteria. Laboratory Results WBC 7.35 10^3/uL (3.29-11.43) 08/29/25 20:30 RBC 4.70 10^6/uL (3.85-5.65) 08/29/25 20:30 Hgb 14.40 g/dL (11.27-16.99) 08/29/25 20:30 Hct 43.5 % (36-47) 08/29/25 20:30 MCV 92.6 fl (85-98) 08/29/25 20:30 MCH 30.6 pg (27-33) 08/29/25 20:30 MCHC 33.1 g/dL (30-55) 08/29/25 20:30 RDW 13.2 % (12.1-15.1) 08/29/25 20:30 Plt Count 216 10^3/cmm (157-399) 08/29/25 20:30 MPV 9.2 fL (7.4-10.4) 08/29/25 20:30 Neut % (Auto) 85.1 % 08/29/25 20:30 Lymph % (Auto) 10.1 % 08/29/25 20:30 Divide % (Auto) 3.8 % 08/29/25 20:30 Eos % (Auto) 0.3 % 08/29/25 20:30 Baso % (Auto) 0.3 % 08/29/25 20:30 Neut # (Auto) 6.26 10^3/uL (1.8-7.7) 08/29/25 20:30 Lymph # (Auto) 0.7 10^3/uL (0.8-4.8) L 08/29/25 20:30 Divide # (Auto) 0.3 10^3/uL (0.2-0.9) 08/29/25 20:30 Eos # (Auto) 0.0 10^3/uL (0.0-0.8) 08/29/25 20:30 Baso # (Auto) 0.0 10^3/uL (0.0-0.1) 08/29/25 20:30 Nucleated RBC % (auto) 0 % 08/29/25 20: Nucleated RBCs # 0.0 /100WBC 08/29/25 20:30 Sodium 142 mmol/L (136-145) 08/29/25 20: Potassium 4.1 mmol/L (3.5-5.1) 08/29/25 20: Chloride 106 mmol/L (98-107) 08/29/25 20: Carbon Dioxide 23 mmol/L (22-29) 08/29/25 20: Anion Gap 17.1 (5-19) 08/29/25 20: BUN 24 mg/dL (8-23) H 08/29/25 20:30 Creatinine 0.9 mg/dL (0.5-0.9) 08/29/25 20: GFR Calculation Not Reportable 08/29/25 20: Glucose 140 mg/dL (65-115) H 08/29/25 20:30 Calculated Osmolality 300 mOsm/kg (285-295) H 08/29/25 20: Calcium 9.7 mg/dL (8.5-10.5) 08/29/25 20:30 Total Bilirubin 0.2 mg/dL (0.15-1.2) 08/29/25 20: AST 17 U/L (0-32) 08/29/25 20: ALT 10 U/L (0-33) 08/29/25 20:30 Alkaline Phosphatase 130 U/L (35-105) H 08/29/25 20:30 Total Protein 7.7 g/dL (6.6-8.7) 08/29/25 20: Albumin 4.6 g/dL (3.5-5.2) 08/29/25 20: Globulin 3.1 g/dL (1.3-4.6) 08/29/25 20: Lipase 26 U/L (13-60) 08/29/25 20:30 Urine Color Yellow (Yellow) 08/29/25 21:59 Urine Appearance Clear (CLEAR) 08/29/25 21:59 Urine pH 6.5 (5-7) 08/29/25 21:59 Ur Specific [place] 1.021 (1.005-1.030) 08/29/25 21:59 Urine Protein 1+ (Negative) A 08/29/25 21:59 Urine Glucose (UA) Negative (Normal) 08/29/25 21:59 Urine Ketones Trace (Negative) 08/29/25 21:59 Urine Blood 3+ (Negative) A 08/29/25 21:59 Urine Nitrate Negative (Negative) 08/29/25 21:59 Urine Bilirubin Negative (Negative) 08/29/25 21:59 Urine Urobilinogen 0.2 mg/dL (Negative) 08/29/25 21:59 Ur Leukocyte Esterase Negative (Negative) 08/29/25 21:59 Urine RBC >100 /hpf (0-2) H 08/29/25 21:59 Urine WBC 0-5 /hpf (0-5) 08/29/25 21:59 Ur Squamous Epith Cells 0-5 /hpf (0-5) 08/29/25 21:59 Amorphous Sediment Not Reportable 08/29/25 21:59 Urine Bacteria None seen /hpf (NONE) 08/29/25 21:59 Hyaline Casts 0.40 /lpf 08/29/25 21:59 All radiology interpretation(s) finalized by discharge Discharge Plan Discharge Patient Disposition: Home Clinical Impression: Kidney stone on left side Condition: Stable Prescriptions: New hydrocodone-acetaminophen 5-325 mg tablet 1 tab PO Q6H PRN (Reason: pain (scale score 7-10)) Qty: 12 0RF ondansetron HCl 4 mg tablet 4 mg PO Q6H PRN (Reason: nausea and vomiting) Qty: 20 0RF ketorolac 10 mg tablet 10 mg PO Q8H PRN (Reason: pain) 5 Days Qty: 15 0RF No Action levothyroxine 75 mcg capsule 75 mcg PO DAILY potassium chloride 10 mEq capsule, extended release 10 meq PO DAILY biotin 1 mg capsule 1 mg PO DAILY albuterol sulfate [Proventil HFA] 90 mcg/actuation HFA aerosol inhaler 2 puff INHALATION Q6H PRN (Reason: Shortness Of Breath) cholecalciferol (vitamin D3) 50 mcg (2,000 unit) capsule 50 mcg PO DAILY Multivitamin PO metoprolol succinate 25 mg tablet extended release 24 hr 25 mg PO DAILY nitroglycerin 0.4 mg tablet, sublingual 0.4 mg sublingual Q5M PRN (Reason: chest pain) Qty: 25 0RF Rx Instructions: do not exceed 3 doses per episode tramadol 50 mg tablet 50 mg PO Q8H PRN (Reason: pain) Qty: 10 0RF tamsulosin [Flomax] 0.4 mg capsule 0.4 mg PO DAILY Qty: 30 0RF ondansetron 4 mg tablet,disintegrating 4 mg PO Q8H PRN (Reason: nausea and vomiting) Qty: 10 0RF Discharge Orders: Discharge ED (Routine); Ordered 08/29/25 Ordered By: Sarah Alva Referrals: Kraig Cervantes MD [Primary Care Provider, Family Practice] Patient Instructions: How to Strain Your Urine (ED), Opioid Safety, Pain Management, Patient Portal & Adry Instructions Activity Restrictions/Additional Instructions: Please take Toradol every 8 hours for pain. For breakthrough and severe pain you may take a Dorris. If you feel nauseated, take Zofran. Continue to monitor your condition closely at home. If your condition worsens or additional concerns arise, please return to the emergency department for reassessment. Please make a follow-up appointment with your urologist within 1 week. Strain your urine when urinating may help catch the stone. Print Language: Irish Coding Level of Care Code ED Looper Fixer for Oscar Morse
--- NOTE | 2025-08-29 20:07 | CTR_ITS ---
PROCEDURE INFORMATION: Exam: CT Abdomen And Pelvis Without Contrast Exam date and time: 08/29/2025 9:13 PM Age: 80 years old Clinical indication: Abdominal pain; Flank; Left; Additional info: L flank pain TECHNIQUE: Imaging protocol: Computed tomography of the abdomen and pelvis without contrast. Radiation optimization: All CT scans at this facility use at least one of these dose optimization techniques: automated exposure control; mA and/or kV adjustment per patient size (includes targeted exams where dose is matched to clinical indication); or iterative reconstruction. COMPARISON: CT abdomen pelvis w con* [id number] 09/26/2024 10:25 PM RADIATION DOSE METRICS: Total DLP (mGy-cm): 516.41 FINDINGS: Lungs: Emphysematous changes in the lung bases posteriorly. Atelectatic changes with no focal consolidation. Coronary arteries: Coronary arterial atherosclerotic calcifications are present. Liver: Normal. No mass. Gallbladder and biliary ducts: Normal. No calcified stones. No ductal dilation. Pancreas: Normal. No ductal dilation. Spleen: Multiple punctate calcifications in the spleen consistent with prior granulomatous infection. Adrenal glands: Normal. No mass. Kidneys and ureters: Right simple appearing renal cyst is present which does not need further follow-up. There is a 4 mm stone in the proximal left ureter with upstream hydroureter and mild hydronephrosis. There is a 2 mm nonobstructing stone in the left kidney. Stomach and bowel: Unremarkable. No obstruction. No mucosal thickening. Appendix: No evidence of appendicitis. Intraperitoneal space: Unremarkable. No free air. No significant fluid collection. Vasculature: Unremarkable. No abdominal aortic aneurysm. Lymph nodes: Unremarkable. No enlarged lymph nodes. Urinary bladder: Unremarkable as visualized. Reproductive: Unremarkable as visualized. Bones/joints: Unremarkable. No acute fracture. Soft tissues: Unremarkable. CT/CT kidney stone [id number] IMPRESSION: There is a 4 mm stone in the proximal left ureter with upstream hydroureter and mild hydronephrosis. COMMENTS: Consistent with the [employer]'s Incidental Findings Committee white paper (J Am Jurgen Radiol 2018): Any incidental renal lesion less than 1 cm or classified as too small to characterize, or any incidental cystic renal lesion characterized as simple-appearing, is likely benign. No follow-up imaging is recommended for these lesions per consensus recommendations based on imaging criteria.
[2025-08-29] MEDS: ondansetron 2 mg/ML SDV 2 mL 4 MG IVP (20:35)
[2025-08-29 20:36] VITALS: BP 187/98; PULSE 80; O2SAT 98
[2025-08-29] MEDS: HYDROmorphone 0.5 MG/0.5 ML INJ 1 MG IVP (20:40)
[2025-08-29 20:55] LABS: Alanine Aminotransferase 10 U/L (0-33); Albumin Level 4.6 g/dL (3.5-5.2); Alkaline Phosphatase 130 U/L (35-105); Aspartate Amino Transferase 17 U/L (0-32); Blood Urea Nitrogen 24 mg/dL (8-23); Calcium 9.7 mg/dL (8.5-10.5); Carbon Dioxide 23 mmol/L (22-29); Chloride 106 mmol/L (98-107); Creatinine Clr Calc Pharmacy 49.9559; Globulin 3.1 g/dL (1.3-4.6); Glucose 140 mg/dL (65-115); Lipase 26 U/L (13-60); Osmolality Calculated 300 mOsm/kg (285-295); Sodium 142 mmol/L (136-145); Total Protein 7.7 g/dL (6.6-8.7)
[2025-08-29 21:00] LABS: Hematocrit 43.5 % (36-47); Hemoglobin 14.40 g/dL (11.27-16.99); Mean Corpuscular HGB Conc 33.1 g/dL (30-55); Mean Corpuscular Hemoglobin 30.6 pg (27-33); Mean Corpuscular Volume 92.6 fl (85-98); Nucleated Red Blood Cells % 0 %; Platelet Count 216 10^3/cmm (157-399); Red Blood Count 4.70 10^6/uL (3.85-5.65); White Blood Count 7.35 10^3/uL (3.29-11.43)
[2025-08-29 21:25] LABS: Anion Gap 17.1 (5-19); Potassium 4.1 mmol/L (3.5-5.1)
[2025-08-29 22:00] VITALS: BP 154/86; PULSE 81; RESP 16; O2SAT 92
[2025-08-29 22:20] LABS: Glucose Urine UA Negative (Normal); Nitrate Urine Negative (Negative); Specific Gravity, Urine 1.021 (1.005-1.030)
[2025-08-29 22:22] LABS: Add Urine Microscopic? YES
[2025-08-29 23:06] VITALS: BP 181/99; PULSE 82; RESP 16; O2SAT 94
== END 2025-08-29 23:33 | disposition home or self-care (01) ==
PROVIDERS: Emergency Provider Emergency Medicine; PCP Family Medicine
DX: N20.0 Calculus of kidney (principal); Z87.442 Personal history of urinary calculi; Z85.51 Personal history of malignant neoplasm of bladder; Z72.0 Tobacco use
CPT/HCPCS: 36415; 74176; 80053; 81001; 83690; 85025; 87086; 96374; 96375; 99285; J1171; J1885; J2405

== ENCOUNTER 2025-08-31 11:49 | Emergency (ER) | payer MEDICARE, SELFPAY ==
--- OUTSIDE RECORDS SUMMARY | 2025-04-25 05:00 | XMS_ITS ---
Author Organization [facility] Address [address] [place] [address] Care Team Providers Care Anger Control Counselor Name Role Phone Kraig Cervantes MD Primary Care Provider Jamin Shell Unavailable [phone] CLAUDIA MCNAIR Unavailable [phone] REASON FOR VISIT Pt will call back to r/s- 6-8 wks f/u - urge incontinence/fecal urgency Procedures Procedure Date Ordered Date Performed Result Body Sit e Bladder Scan 04/25/2025 N/A Encounters Encounter Location Date Provider Diagnosis [facility] [address] [place] [address] 04/25/2025 CLAUDIA MCNAIR Mixed stress and urg e urinary incontinence N39.46 ; History of bladder cancer Z85.51 and History of nephrolithiasis Z87.442 Assessments Encounter Date Diagnosis (ICD Code) Assessment Notes Treatment Notes Treatment Clinical Notes Section Notes 04/25/2025 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 Pt will call back to r/s- 6-8 wks f/u - urge incontinence/fecal urgency. * HPI: * : P ermias is a [address] Rich with a h/o nephrolithiasis, bladder cancer, and refractory OAB/UI. P revious Dr. Jay patient. 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 Last negative cystoscopy in December 2024 on yearly surveillance. She passed right ureteral stone in September 2024. She was c/o frequency, urgency, and both urge urinary and fecal incontinence. S he failed oxybutynin in the past. She did not take Myrbetriq because of cost concerns. At [facility],? she was given V esicare prescription and Gemtesa samples to take in combination. She is here today for 6-8w f/u with UA/PVR. * Medical History: Objective: * Vitals: Assessment: * Assessment: 1. M ixed stress and urge urinary incontinence - N39.46 (Primary) 2 . H istory of bladder cancer - Z85.51 3 . H istory of nephrolithiasis - Z87.442 ? Plan: * Treatment: * Procedure Codes: 8 1003 URINALYSIS, AUTO, W/O SCOPE, 21865 US URINE CAPACITY MEASURE * Billing Information: * Visit Code: * Procedure Codes: 42111 URINALYSIS, AUTO, W/O SCOPE. 22400 US URINE CAPACITY MEASURE. * Electronic signature of CAROL MCNAIR APRN on 08/31/2025 at 11:56 AM DIRECTOR FUNERAL Sign off status: Pending * Provider: Tyrone Mcnair APRN Date: 0 04/25/2025 Generated for Matthew nixon/Gerda/eTransmitting on: 1 10/31/2024 11:56 AM DIRECTOR FUNERAL History and Physical Notes * HPI (History of Present Illness) Category Sub-Category Detail Notes Category Not es Pt is a [address] Rich with a h/o nephrolithiasis, bladder cancer, and refractory OAB/UI. Previous Dr. Jay patient. 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 Last negative cystoscopy in December 2024 on yearly surveillance. She passed right ureteral stone in September 2024. She was c/o frequency, urgency, and both urge urinary and fecal incontinence. She failed oxybutynin in the past. She did not take Myrbetriq because of cost concerns. At [facility], she was given Vesicare prescription and Gemtesa samples to take in combination. She is here today for 6-8w f/u with UA/PVR.
--- OUTSIDE RECORDS SUMMARY | 2025-08-31 11:56 | XMS_ITS | Patient Health Record ---
Author Organization [facility] Address [address] [place] [address] Care Team Providers Care Engineering Operations Leader Name Role Phone Katerina Hess APRN Primary Care Provider Hari Dumont Unavailable [phone] Allergies Allergen (clinical drug ingredient) Drug/Non Drug [...] food Orally Twice a day Active Biotin 43431 MCG Tablet 1 tablet Orally Once a [...] Displacement of lumbar intervertebral disc without myelopathy (98967455) Herniated nucleus pulposus, lumbar (M51.26) Active confirmed Plan Of Treatment No Information Insurance Providers Payer Name Payer Address Payer Phone Subscriber Number Group Number Insured Name Patient Relationship to Insured Coverage Start Date Coverage End Date [place] [address] [address] [place] [phone] [id number] Marlee Bernard Self - patient is the insured Medical (General) History Medical History History ICD Code measles mumps chicken pox pneumonia bladder infections bladder cancer back trouble asthma bronchitis mitral valve prolapse cataracts colon polyps COPD depression COPD fibromyalgia hyperlipidemia Surgical History Surgery Date(Month/Year) hysterectomy, bladder tie up hemorrhoid
--- OUTSIDE RECORDS SUMMARY | 2025-08-31 11:56 | XMS_ITS | Patient Health Record ---
Author Organization [facility] Address [address] [place] [address] Care Team Providers Care Supervisor Carpenters Name Role Phone Helen MARTÍNEZ, Kraig Primary Care Provider UnavailJamin Franco Unavailable [phone] JAMIN RICH Unavailable [phone] CLAUDIA MCNAIR Unavailable [phone] ALAN PARMAR Unavailable [phone] Allergies Allergen (clinical drug ingredient) Drug/Non Drug [...] Glucose - Bilirubin - Ketones - Specific [place] 1.015 Occult Blood - pH 6.0 Urine Protein - Urobilinogen,Semi-Qn - Nitrite, Urine - WBC Esterase - Urinalysis, Routine Reviewed date:03/07/2025 01:59:11 PM Interpretation: Performing Lab: Notes/Report: Urine-Color yellow Appearance clear Glucose - Bilirubin 1+ Ketones - Specific [place] 1.025 Occult Blood - pH 6.0 Urine Protein - Urobilinogen,Semi-Qn - Nitrite, Urine - WBC Esterase - Urinalysis, Routine Reviewed date:01/10/2025 03:02:05 PM Interpretation: Performing Lab: Notes/Report: Urine-Color yellow Appearance clear Glucose - Bilirubin - Ketones - Specific [place] 1.025 Occult Blood - pH 6.0 Urine Protein - Urobilinogen,Semi-Qn - Nitrite, Urine - WBC Esterase - Urinalysis, Routine Reviewed date:10/11/2024 03:40:30 PM Interpretation: Performing Lab: Notes/Report: Urine-Color yellow Appearance clear Glucose - Bilirubin - Ketones - Specific [place] 1.025 Occult Blood - pH 5.5 Urine [...] W/U Status Risk Notes Problem Mixed incontinence (230108843) Mixed stress and urge urinary incontinence (N39.46) Active confirmed Problem Ureteral stone with hydronephrosis (N13.2) Active confirmed Problem Malignant tumor of urinary bladder (335931695) Bladder carcinoma (C67.9) Active confirmed Problem Personal history of primary malignant neoplasm of urinary bladder (929908230) History of bladder cancer (Z85.51) Active confirmed Problem Kidney stone (73019017) Kidney stone (N20.0) Active confirmed Vital Signs [...] mL Encounters Encounter Location Date Provider Diagnosis [facility] [address] [place] [address] 10/11/2024 Jamin Umaña Kidney stone N20.0 ; Ureteral stone with hydronephrosis N13.2 ; History of bladder cancer Z85.51 and History of urinary tract infection Z87.440 [facility] [employer], [facility] [address] [place] [address] 11/02/2024 Jamin Umaña Kidney stone N20.0 ; Ureteral stone with hydronephrosis N13.2 ; History of bladder cancer Z85.51 ; History of urinary tract infection Z87.440 and Mixed stress and urge urinary incontinence N39.46 [facility] [employer], [facility] [address] [place] [address] 01/10/2025 JAMIN RICH History of bladder cancer Z85.51 ; Kidney stone N20.0 ; Ureteral stone with hydronephrosis N13.2 ; History of urinary tract infection Z87.440 and Mixed stress and urge urinary incontinence N39.46 [facility] [employer], [facility] [address] [place] [address] 03/07/2025 JAMIN RICH Mixed stress and urg e urinary incontinence N39.46 ; History of bladder cancer Z85.51 ; Kidney stone N20.0 ; Ureteral stone with hydronephrosis N13.2 and History of urinary tract infection Z87.440 [facility] [employer] [facility] [address] [place] [address], [place] [address] 09/30/2024 ALAN PARMAR Assessments Encounter Date Diagnosis [...] were answered. Patient satisfied with plan. 11/02/2024 Ureteral stone with hydronephrosis (ICD-10 - [...] than 50% of that time in direct [id number] discussion. 01/10/2025 Kidney stone (ICD-10 - N20.0) [...] than 50% of that time in direct [id number] discussion. 03/07/2025 Mixed stress and urge urinary [...] per protocol on a yearly basis. 03/07/2025 Kidney stone (ICD-10 - N20.0) She [...] than 50% of that time in direct [id number] discussion. 10/11/2024 History of bladder cancer (ICD-10 - [...] Patient satisfied with plan. 11/02/2024 History of urinary tract infection (ICD-10 [...] Patient satisfied with plan. 10/11/2024 History of urinary tract infection (ICD-10 [...] Patient satisfied with plan. 01/10/2025 History of urinary tract infection (ICD-10 [...] than 50% of that time in direct [id number]-rvja discussion. 03/07/2025 Ureteral stone with hydronephrosis (ICD-10 - [...] on a yearly basis. 03/07/2025 History of urinary tract infection (ICD-10 [...] per protocol on a yearly basis. 01/10/2025 Mixed stress and urge urinary incontinence [...] than 50% of that time in direct tetj-wn-izdi discussion. 11/02/2024 Mixed stress and urge urinary incontinence [...] the presence of, Dr. Rich. I, Dr. Jamin Rich, personally performed the services prescribed in [...] Test Test Name Order Date US Renal w/bladder--[id number] 10/11/2024 Insurance Providers Payer Name Payer Address Payer Phone Subscriber Number Group Number Insured Name Patient Relationship to Insured Coverage Start Date Coverage End Date [facility] Medicare Advantage PPO [address] [address] [place], [place] [id number] BreezyMarlee islas Self - patient is [...]
[2025-08-31 11:57] VITALS: BP 133/74; PULSE 70; RESP 17; TEMP 36.7; O2SAT 97; BMI 24.2
[2025-08-31 12:36] VITALS: RESP 16; O2SAT 99
[2025-08-31] MEDS: morphine 4 mg/mL SDV 1 mL IVP (12:36)
--- NOTE | 2025-08-31 12:36 | W.ED.ABDPA2 ---
HPI - Abdominal Pain General: Chief Complaint: Abdominal Pain Stated Complaint: Lower L side Pain going to front ABD Time Seen by Provider: 08/31/25 12:01 History of Present Illness: 80-year-old female past medical history significant for bladder cancer 20 years ago, chronic back pain, overactive bladder, hypertension, hyperlipidemia, kidney stone 1 year ago passed spontaneously presenting emergency department with persistent pain to the left flank, initially started 2 days ago was seen in the ER and diagnosed with a 4 mm proximal ureteral stone, symptoms improved with ER management and sent home with prescription for painkiller, reports that he never filled the prescription due to it being nighttime when they left the ER. Reports that the pain was improved yesterday after being in the ER but has since come back today, similar in severity to original onset, no fevers, no vomiting, no hematuria dysuria urgency or frequency of urination. Patient reports she has a urologist in [facility] and does not want to follow-up with a possible urology referral in [place] if needed. Related Data Home Medications ?Medication ?Instructions ?Recorded ?Confirmed albuterol sulfate 90 mcg/actuation 2 puff inhalation Q6H PRN 04/30/20 01/20/25 aerosol inhaler (Proventil HFA) Shortness Of Breath biotin 1 mg capsule 1 mg PO DAILY 04/30/20 01/20/25 levothyroxine 75 mcg capsule 75 mcg PO DAILY 04/30/20 01/20/25 potassium chloride 10 mEq 10 meq PO DAILY 04/30/20 01/20/25 capsule,extended release Multivitamin PO 12/03/23 01/20/25 cholecalciferol (vitamin D3) 50 50 mcg PO DAILY 12/03/23 01/20/25 mcg (2,000 unit) capsule metoprolol succinate 25 mg 25 mg PO DAILY 01/20/25 01/20/25 tablet,extended release 24 hr Previous Rx's ?Medication ?Instructions ?Recorded ondansetron 4 mg disintegrating 4 mg PO Q8H PRN nausea and 09/26/24 tablet vomiting #10 tabs tamsulosin 0.4 mg capsule (Flomax) 0.4 mg PO DAILY #30 caps 09/26/24 tramadol 50 mg tablet 50 mg PO Q8H PRN pain #10 tabs 09/26/24 nitroglycerin 0.4 mg sublingual 0.4 mg sublingual Q5M PRN chest 03/06/25 tablet pain #25 tabs hydrocodone 5 mg-acetaminophen 325 1 tab PO Q6H PRN pain (scale score 08/29/25 mg tablet 7-10) #12 tabs ketorolac 10 mg tablet 10 mg PO Q8H PRN pain 5 days #15 08/29/25 tabs ondansetron HCl 4 mg tablet 4 mg PO Q6H PRN nausea and 08/29/25 vomiting #20 tabs cefpodoxime 200 mg tablet 200 mg PO Q12H 5 days #10 tabs 08/31/25 Allergies Allergy/AdvReac Type Severity Reaction Status Date / Time ciprofloxacin (From Cipro) Allergy Severe rash, sores Verified 08/29/25 18:49 diazepam (From Valium) Allergy Severe anxious Verified 08/29/25 18:49 hydroxyzine (From Vistaril) Allergy Severe difficulty Verified 08/29/25 18:49 breathing sulfamethoxazole (From Allergy Severe rash, Verified 08/29/25 18:49 Septra) sores meperidine (From Demerol) Allergy Intermediate difficulty Verified 08/29/25 18:49 breathing bupropion (From Wellbutrin) Allergy Unknown Increased Verified 08/29/25 18:49 blood pressure levofloxacin (From Levaquin) Allergy Unknown rash, sores Verified 08/29/25 18:49 trimethoprim (From Septra) Allergy Unknown rash, sores Verified 08/29/25 18:49 PFSH ED PFSH: Medical History Hx of bladder cancer Mixed stress and urge urinary incontinence Recurrent UTI Surgical History History of back surgery NECK SURGERY Hx of cataract surgery Hx of total hysterectomy Hx of oophorectomy Hx of hemorrhoidectomy Hx of transurethral destruction of bladder lesion Family History Mother , AT AGE 94 Congestive heart failure (CHF) Aortic valve disorder Hypertension Heart block Father , IN HIS 80'S Alzheimer disease Daughter Thyroid disease Other Diabetes Denies family history of Colon cancer Ovarian cancer Clotting disorder Breast cancer Anesthesia complication Bleeding disorder Uterine cancer Stroke Social History Smoking and tobacco/nicotine status: current every day tobacco/nicotine user Alcohol intake: never Substance/Drug Use: unknown Adopted: No Caregiver/support person: No Marital status: Current occupational status: retired Current gender identity: Female Physical Exam Narrative: EXAM NARRATIVE: Gen: A&Ox4, no acute distress, nontoxic appearing HEENT: Normocephalic, atraumatic, no scleral icterus, external ears normal, moist mucous membranes Neck: Supple, full range of motion, no observable masses Lungs: No Respiratory distress, Lungs clear to auscultation bilaterally no rales, rhonchi, wheezing CV: Regular rate and rhythm, no murmur, no pitting edema to lower extremities bilaterally Abdomen: Soft, nondistended, nontender to palpation, positive left-sided CVA tenderness, no skin changes or lesions MSK: No joint swelling, FROM all 4 extremities Skin: No rashes, petechiae, lesions. Normal color per patient. Neuro: Alert and oriented, no slurred speech, sensation and strength grossly intact all 4 extremities Psych: Appropriate for situation. Course Reevaluation(s): Reevaluation #1: Patient reassessed, pain improved, workup showing slight increase in creatinine without significant DELMER, there is bacteria in the urine on urinalysis today with no bacteria 2 days ago and a negative preliminary culture from 2 days ago, will give a dose of empiric IV Rocephin and start cefpodoxime for prophylaxis, patient was already prescribed NSAIDs and pain control and Zofran which I recommend she fill today for management of her symptoms, she understands the need to follow-up with her urologist in [place] within 1 week to assess need for lithotripsy. Instructed to return to the ER if she develops fever, decreased urine output, worsening symptoms Time: 13:40 Vital Signs: Vital signs: Vital Signs Temperature 98.1 F 08/31/25 11:57 Pulse Rate 70 08/31/25 11:57 Respiratory Rate 16 08/31/25 12:36 Blood Pressure 133/74 08/31/25 11:57 Pulse Oximetry 99 08/31/25 12:36 Oxygen Delivery Me thod Room Air 08/31/25 11:57 MDM - Abdominal Pain Medical Decision Making 80-year-old female presenting emergency department with 2-day history of left flank pain, diagnosed a day and a half ago with a proximal 4 mm left-sided stone discharged with pain control which she never filled at the pharmacy, now presenting with similar symptoms, clinically appears well, stable vitals, does not appear septic, plan for labs and urinalysis to assess for any DELMER or developing infection, low utility in repeat scan given only 2 days of symptoms has not been enough time to determine definitive need for lithotripsy and given small size still likely to pass spontaneously. Anticipate discharge with pain control if blood work reassuring to follow-up with outpatient urology for evaluation for lithotripsy if symptoms not resolving. Lab Data Labs with no leukocytosis or anemia, creatinine borderline 1.3, urinalysis with bacteria in the urine 08/31/25 12:30 08/31/25 12:30 Labs/Radiology: Laboratory Results WBC 8.92 10^3/uL (3.29-11.43) 08/31/25 12:30 RBC 4.33 10^6/uL (3.85-5.65) 08/31/25 12:30 Hgb 13.20 g/dL (11.27-16.99) 08/31/25 12:30 Hct 39.7 % (36-47) 08/31/25 12:30 MCV 91.7 fl (85-98) 08/31/25 12:30 MCH 30.5 pg (27-33) 08/31/25 12:30 MCHC 33.2 g/dL (30-55) 08/31/25 12:30 RDW 13.2 % (12.1-15.1) 08/31/25 12:30 Plt Count 178 10^3/cmm (157-399) 08/31/25 12:30 MPV 8.9 fL (7.4-10.4) 08/31/25 12:30 Neut % (Auto) 78.8 % 08/31/25 12:30 Lymph % (Auto) 11.5 % 08/31/25 12:30 Frontier % (Auto) 7.8 % 08/31/25 12:30 Eos % (Auto) 1.3 % 08/31/25 12:30 Baso % (Auto) 0.2 % 08/31/25 12:30 Neut # (Auto) 7.01 10^3/uL (1.8-7.7) 08/31/25 12:30 Lymph # (Auto) 1.0 10^3/uL (0.8-4.8) 08/31/25 12:30 Frontier # (Auto) 0.7 10^3/uL (0.2-0.9) 08/31/25 12:30 Eos # (Auto) 0.1 10^3/uL (0.0-0.8) 08/31/25 12:30 Baso # (Auto) 0.0 10^3/uL (0.0-0.1) 08/31/25 12:30 Nucleated RBC % (auto) 0 % 08/31/25 12:30 Nucleated RBCs # 0.0 /100WBC 08/31/25 12:30 Sodium 139 mmol/L (136-145) 08/31/25 12:30 Potassium 4.2 mmol/L (3.5-5.1) 08/31/25 12:30 Chloride 107 mmol/L (98-107) 08/31/25 12:30 Carbon Dioxide 21 mmol/L (22-29) L 08/31/25 12:30 Anion Gap 15.2 (5-19) 08/31/25 12:30 BUN 22 mg/dL (8-23) 08/31/25 12:30 Creatinine 1.3 mg/dL (0.5-0.9) H 08/31/25 12:30 GFR Calculation Not Reportable 08/31/25 12:30 Glucose 100 mg/dL (65-115) 08/31/25 12:30 Calculated Osmolality 291 mOsm/kg (285-295) 08/31/25 12: Calcium 8.8 mg/dL (8.5-10.5) 08/31/25 12:30 Urine Color Yellow (Yellow) 08/31/25 12:05 Urine Appearance Cloudy (CLEAR) A 08/31/25 12:05 Urine pH 6.0 (5-7) 08/31/25 12:05 Ur Specific [place] 1.021 (1.005-1.030) 08/31/25 12:05 Urine Protein Trace (Negative) A 08/31/25 12:05 Urine Glucose (UA) Negative (Normal) 08/31/25 12:05 Urine Ketones Trace (Negative) 08/31/25 12:05 Urine Blood 2+ (Negative) A 08/31/25 12:05 Urine Nitrate Negative (Negative) 08/31/25 12:05 Urine Bilirubin Negative (Negative) 08/31/25 12:05 Urine Urobilinogen 0.2 mg/dL (Negative) 08/31/25 12:05 Ur Leukocyte Esterase 1+ (Negative) A 08/31/25 12:05 Urine RBC >100 /hpf (0-2) H 08/31/25 12:05 Urine WBC 11-20 /hpf (0-5) H 08/31/25 12:05 Ur Squamous Epith Cells 0-5 /hpf (0-5) 08/31/25 12:05 Amorphous Sediment Not Reportable 08/31/25 12:05 Urine Bacteria 4+ /hpf (NONE) H 08/31/25 12:05 Hyaline Casts 2.87 /lpf 08/31/25 12:05 No radiology studies performed this visit Discharge Plan Discharge Patient Disposition: Home Clinical Impression: Calculus of left kidney Condition: Stable Prescriptions: New cefpodoxime 200 mg tablet 200 mg PO Q12H 5 Days Qty: 10 0RF Rx Instructions: must administer with a meal/food No Action levothyroxine 75 mcg capsule 75 mcg PO DAILY potassium chloride 10 mEq capsule, extended release 10 meq PO DAILY biotin 1 mg capsule 1 mg PO DAILY albuterol sulfate [Proventil HFA] 90 mcg/actuation HFA aerosol inhaler 2 puff INHALATION Q6H PRN (Reason: Shortness Of Breath) cholecalciferol (vitamin D3) 50 mcg (2,000 unit) capsule 50 mcg PO DAILY Multivitamin PO metoprolol succinate 25 mg tablet extended release 24 hr 25 mg PO DAILY nitroglycerin 0.4 mg tablet, sublingual 0.4 mg sublingual Q5M PRN (Reason: chest pain) Qty: 25 0RF Rx Instructions: do not exceed 3 doses per episode tramadol 50 mg tablet 50 mg PO Q8H PRN (Reason: pain) Qty: 10 0RF tamsulosin [Flomax] 0.4 mg capsule 0.4 mg PO DAILY Qty: 30 0RF ondansetron 4 mg tablet,disintegrating 4 mg PO Q8H PRN (Reason: nausea and vomiting) Qty: 10 0RF hydrocodone-acetaminophen 5-325 mg tablet 1 tab PO Q6H PRN (Reason: pain (scale score 7-10)) Qty: 12 0RF ondansetron HCl 4 mg tablet 4 mg PO Q6H PRN (Reason: nausea and vomiting) Qty: 20 0RF ketorolac 10 mg tablet 10 mg PO Q8H PRN (Reason: pain) 5 Days Qty: 15 0RF Discharge Orders: Discharge ED (Routine); Ordered 08/31/25 Ordered By: Minor Mcmillan Referrals: Kraig Cervantes MD [Primary Care Provider, Family Practice] Patient Instructions: Abdominal Pain (ED), Opioid Safety, Pain Management, Patient Portal & Adry Instructions, Kidney Stones (ED) Activity Restrictions/Additional Instructions: You were seen in the emergency department for flank pain on your left side, you were previously diagnosed with a kidney stone, your workup today does not show any signs of dangerous kidney dysfunction and I recommend you take the medications you were previously prescribed as well as the antibiotic I have started you on today, follow-up with your urologist within 1 week, return if you develop fevers, decreased urine output, worsening pain, or any other concerns. Print Language: Filipino Coding Level of Care Code ED Timber Inspector for Oscar Morse
[2025-08-31 12:39] LABS: Hematocrit 39.7 % (36-47); Hemoglobin 13.20 g/dL (11.27-16.99); Mean Corpuscular HGB Conc 33.2 g/dL (30-55); Mean Corpuscular Hemoglobin 30.5 pg (27-33); Mean Corpuscular Volume 91.7 fl (85-98); Nucleated Red Blood Cells % 0 %; Platelet Count 178 10^3/cmm (157-399); Red Blood Count 4.33 10^6/uL (3.85-5.65); White Blood Count 8.92 10^3/uL (3.29-11.43)
[2025-08-31 12:54] LABS: Blood Urea Nitrogen 22 mg/dL (8-23); Calcium 8.8 mg/dL (8.5-10.5); Carbon Dioxide 21 mmol/L (22-29); Chloride 107 mmol/L (98-107); Creatinine Clr Calc Pharmacy 34.7858; Glucose 100 mg/dL (65-115); Osmolality Calculated 291 mOsm/kg (285-295); Sodium 139 mmol/L (136-145)
[2025-08-31 12:56] LABS: Anion Gap 15.2 (5-19); Potassium 4.2 mmol/L (3.5-5.1)
[2025-08-31 13:02] LABS: Glucose Urine UA Negative (Normal); Nitrate Urine Negative (Negative); Specific Gravity, Urine 1.021 (1.005-1.030)
[2025-08-31 13:54] VITALS: BP 162/82; PULSE 68; O2SAT 93
[2025-08-31] MEDS: cefTRIAXone 1,000 mg SDV 1000 MG IVP (14:00)
[2025-08-31 14:16] VITALS: BP 161/70; PULSE 66; O2SAT 100
== END 2025-08-31 14:23 | disposition home or self-care (01) ==
PROVIDERS: Emergency Provider Student in an Organized Health Care Education/Training Program; PCP Family Medicine
DX: N20.0 Calculus of kidney (principal); Z87.442 Personal history of urinary calculi; Z85.51 Personal history of malignant neoplasm of bladder; Z72.0 Tobacco use
CPT/HCPCS: 36415; 80048; 81001; 85025; 87077; 87086; 87186; 96374; 96375; 99284; J0696; J1885; J2270; J7030

== ENCOUNTER → 2025-09-07 08:05 | Outpatient (BNVA) | payer MEDICARE, SELFPAY | PROVIDERS: PCP Family Medicine; Visit Provider Internal Medicine | DX: Z01.818 Encounter for other preprocedural examination (principal); J44.9 Chronic obstructive pulmonary disease, unspecified; I10 Essential (primary) hypertension; M19.012 Primary osteoarthritis, left shoulder; M19.011 Primary osteoarthritis, right shoulder; Z98.890 Other specified postprocedural states; R94.31 Abnormal electrocardiogram [ECG] [EKG] | CPT/HCPCS: 93005 ==

== ENCOUNTER 2025-09-07 08:23 | Outpatient (CLI) | payer MEDICARE, SELFPAY ==
--- NOTE | 2025-09-07 08:33 | XR_ITS ---
WS: [id number] Exam: XR chest 2V* [id number] Date/Time of Exam: 09/07/2025 8:38 AM Reason For Exam: PRE OP TESTING/COPD/HTN Comparison 08/09/2024. The lungs are clear and fully expanded. Normal cardiomediastinal silhouette. Bony structures are intact. DJD of both shoulders. Fusion hardware in the lower C-spine. XR/XR chest 2V* [id number] IMPRESSION: 1. No acute cardiopulmonary finding.
== END 2025-09-07 08:24 | disposition home or self-care (01) ==
PROVIDERS: PCP Family Medicine; Visit Provider Nurse Practitioner Family
DX: Z01.818 Encounter for other preprocedural examination (principal); J44.9 Chronic obstructive pulmonary disease, unspecified; I10 Essential (primary) hypertension
CPT/HCPCS: 71046